=== PATIENT | male | born 1985 | race Caucasian/White ===

== ENCOUNTER 2018-05-30 12:18 | Emergency (ER) | payer MEDICARE, OTHER ==
[2018-05-30 12:34] VITALS: TEMP 98.1
--- NOTE | 2018-05-30 13:23 | ED ---
Psych HPI - General Chief Complaint: Psychiatric Symptoms Stated Complaint: Mental health Time Seen by Provider: 05/30/18 13:01 Source: patient, RN notes reviewed Mode of arrival: ambulatory - History of Present Illness Initial Comments: This is a 32-year-old male history depression and psychosis schizophrenia who is been using marijuana and alcohol heavily especially alcohol recently who is here today with complaints of suicidal thoughts and ideation. He was drinking rum today. Does not seem to have any particular plan. No fevers chills nausea vomiting sweats or other symptoms reported at this time. He is here with his mother. This current episode is been going on for about one month. It is getting progressively worse MD Complaint: suicidal ideation, feels depressed - Related Data Home Medications Medication Instructions Recorded Confirmed Dextroamphetamine/Amphetamine 60 mg PO DAILY 05/30/18 05/30/18 [Adderall] Ziprasidone [Geodon] 80 mg PO BID 05/30/18 05/30/18 diphenhydrAMINE [Benadryl] 100 mg PO HS 05/30/18 05/30/18 hydrOXYzine PAMOATE 100 mg PO TID PRN 05/30/18 05/30/18 Allergies Allergy/AdvReac Type Severity Reaction Status Date / Time propoxyphene Allergy Unknown Verified 05/30/18 13:31 [From [facility]-N 100] Review of Systems ROS Statement: Those systems with pertinent positive or pertinent negative responses have been documented in the HPI. ROS Other: All systems not noted in ROS Statement are negative. Past Medical History Past Medical History: No Reported History History of Any Multi-Drug Resistant Organisms: None Reported Past Surgical History: Orthopedic Surgery Past Psychological History: Bipolar, Depression Smoking Status: Current every day smoker Past Alcohol Use History: Abuse, Daily, Heavy Past Drug Use History: Marijuana General Exam - General Exam Comments Initial Comments: This a well-developed well-nourished awake alert oriented history male he does have the smell of alcohol conjoiners on his breath Limitations: no limitations General appearance: alert, in no apparent distress Head exam: Present: atraumatic, normocephalic, normal inspection Eye exam: Present: normal appearance, PERRL, EOMI. Absent: scleral icterus, conjunctival injection, periorbital swelling ENT exam: Present: normal exam, mucous membranes moist Neck exam: Present: normal inspection. Absent: tenderness, meningismus, lymphadenopathy Respiratory exam: Present: normal lung sounds bilaterally. Absent: respiratory distress, wheezes, rales, rhonchi, stridor Cardiovascular Exam: Present: regular rate, normal rhythm, normal heart sounds. Absent: systolic murmur, diastolic murmur, rubs, gallop, clicks GI/Abdominal exam: Present: soft, normal bowel sounds. Absent: distended, t enderness, guarding, rebound, rigid Extremities exam: Present: normal inspection, full ROM, normal capillary refill. Absent: tenderness, pedal edema, joint swelling, calf tenderness Back exam: Present: normal inspection Neurological exam: Present: alert, oriented X3, CN II-XII intact Psychiatric exam: Present: depressed, flat affect, suicidal ideation Skin exam: Present: warm, dry, intact, normal color. Absent: rash Course Vital Signs 05/30/18 05/30/18 12:31 20:05 Temperature 98.1 F Pulse Rate 103 H 88 Respiratory 18 14 Rate Blood Pressure 127/76 129/66 O2 Sat by Pulse 99 94 L Oximetry - Reevaluation(s) Reevaluation #1: 05/30/18 20:31 The patient was determined to be sober was evaluated by psychiatric service. Patient states that he really wanted to get off of substance abuse. He later denied that he was suicidal. Reevaluation #2: 05/30/18 20:32 The patient's care will be endorsed to Dr. Buenrostro at shift change at 2100 hrs. Medical Decision Making - Medical Decision Making The patient was reevaluated by psychiatry and found not to be a risk to himself or anyone else he will be discharged with his mother he will follow-up with rehab tomorrow with [facility]. - Lab Data Lab Results 05/30/18 Range/Units 13:27 Urine Opiates Screen Not Detected (NotDetected) Ur Oxycodone Screen Not Detected (NotDetected) Urine Methadone Screen Not Detected (NotDetected) Ur Propoxyphene Screen Not Detected (NotDetected) Ur Barbiturates Screen Not Detected (NotDetected) U Tricyclic Antidepress Not Detected (NotDetected) Ur Phencyclidine Scrn Not Detected (NotDetected) Ur Amphetamines Screen Detected H (NotDetected) U Methamphetamines Scrn Not Detected (NotDetected) U Benzodiazepines Scrn Detected H (NotDetected) Urine Cocaine Screen Not Detected (NotDetected) U Marijuana (THC) Screen Detected H (NotDetected) Disposition Clinical Impression: Depression, Attempted suicide, Alcohol intoxication Disposition: HOME SELF-CARE Condition: Good Instructions (If sedation given, give patient instructions): Depression (ED), Alcohol Intoxication (ED), Abuse of Alcohol (ED), Mood Disorders (ED) Is patient prescribed a controlled substance at d/c from ED?: No Referrals: Macario Olsen DO [Primary Care Provider] - 1-2 days
[2018-05-30 14:17] LABS: Amphetamine Screen,Urine Detected (NotDetected); Barbiturate Screen,Urine Not Detected (NotDetected); Benzodiazepines Screen,Urine Detected (NotDetected); Cocaine Screen,Urine Not Detected (NotDetected); Methadone Screen, Urine Not Detected (NotDetected); Opiate Screen,Urine Not Detected (NotDetected); Oxycodone Screen, Urine Not Detected (NotDetected); Phencyclidine Screen,Urine Not Detected (NotDetected); Tricyclic Antidepressant,Urine Not Detected (NotDetected); Urn Cannabinoid Scrn Detected (NotDetected)
[2018-05-30] MEDS ORDERED: LORazepam 1 MG TAB PO STA (15:21)
[2018-05-30] MEDS ORDERED: NICOTINE 21MG/24HR PATCH TRANSDERM STA (15:21)
[2018-05-30 20:06] VITALS: RESP 14
[2018-05-30 21:54] VITALS: BP 137/77; PULSE 77
== END 2018-05-30 21:54 | disposition home or self-care (01) ==
LOC: EC 12:18
DX: F31.9 Bipolar disorder, unspecified (principal); F10.129 Alcohol abuse with intoxication, unspecified; T14.91XA Suicide attempt, initial encounter; F20.9 Schizophrenia, unspecified; F17.200 Nicotine dependence, unspecified, uncomplicated; Z79.899 Other long term (current) drug therapy; Z88.5 Allergy status to narcotic agent
CPT/HCPCS: 80306; 99285; S4990

== ENCOUNTER 2019-03-12 14:51 | Inpatient (IN) | payer MEDICARE, MEDICAID ==
[2019-03-12] MEDS ORDERED: DIPH,PERTUS(ACELL)TETVAC-LF 0.5 ML VIAL IM ONE (15:00)
[2019-03-12] MEDS: TOPICAL SKIN ADHESIVE 1 EACH AMP TOPICAL ONE (15:09)
--- NOTE | 2019-03-12 15:10 | ED ---
General Adult HPI - General Chief complaint: Psychiatric Symptoms Stated complaint: Mental Health Time Seen by Provider: 03/12/19 14:54 Source: patient, EMS, RN notes reviewed Mode of arrival: EMS Limitations: no limitations - History of Present Illness Initial comments: Patient is a pleasant 33-year-old male presenting to the emergency Department with depression and suicidal thoughts. Patient admits to having auditory hallucinations. States is the voices sometimes tell him what to do. He states the voices do not tell him to harm himself nor anybody else however he had here that they were going to tell him to harm his cats or his mother and therefore he incised his wrists bilaterally with a clean kitchen knife. Patient does drink frequently, none today. Patient has not been eating or drinking well lately. No new physical complaints other than wrist injuries. Unclear last tetanus immunization. No street drugs. - Related Data Home Medications Medication Instructions Recorded Confirmed Dextroamphetamine/Amphetamine 60 mg PO DAILY 05/30/18 05/30/18 [Adderall] Ziprasidone [Geodon] 80 mg PO BID 05/30/18 05/30/18 diphenhydrAMINE [Benadryl] 100 mg PO HS 05/30/18 05/30/18 hydrOXYzine PAMOATE 100 mg PO TID PRN 05/30/18 05/30/18 Allergies Allergy/AdvReac Type Severity Reaction Status Date / Time propoxyphene Allergy Unknown Verified 05/30/18 13:31 [From Maritza-N 100] Review of Systems ROS Statement: Those systems with pertinent positive or pertinent negative responses have been documented in the HPI. ROS Other: All systems not noted in ROS Statement are negative. Constitutional: Denies: fever Eyes: Denies: eye pain ENT: Denies: ear pain Respiratory: Denies: cough Cardiovascular: Denies: chest pain Endocrine: Denies: fatigue Gastrointestinal: Denies: abdominal pain Genitourinary: Denies: dysuria Musculoskeletal: Denies: back pain Skin: Denies: rash Neurological: Denies: weakness Past Medical History Past Medical History: No Reported History History of Any Multi-Drug Resistant Organisms: None Reported Past Surgical History: Orthopedic Surgery Past Psychological History: Bipolar, Depression Smoking Status: Current every day smoker Past Alcohol Use History: Abuse, Daily, Heavy Past Drug Use History: Marijuana General Exam Limitations: no limitations General appearance: alert, in no apparent distress Head exam: Present: normocephalic Eye exam: Present: normal appearance ENT exam: Present: other (Dry lips) Neck exam: Present: normal inspection Respiratory exam: Present: normal lung sounds bilaterally Cardiovascular Exam: Present: regular rate, normal rhythm Expanded Peripheral pulses: 2+: Radial (R), Radial (L) GI/Abdominal exam: Present: soft. Absent: tenderness Extremities exam: Present: other (Bilateral wrist laceration) Neurological exam: Present: alert, other (Strength of wrist and fingers distally. Sensation intact. Cap refill less than 2 seconds.). Absent: motor sensory deficit Psychiatric exam: Present: normal affect, normal mood Skin exam: Present: other (By lateral wrist lacerations) Course Vital Signs 03/12/19 03/12/19 03/12/19 14:58 15:00 19:12 Temperature 98.2 F Pulse Rate 118 H 90 90 Respiratory 18 18 18 Rate Blood Pressure 139/85 130/78 130/78 O2 Sat by Pulse 98 98 98 Oximetry Procedures - Laceration Laceration #1 Consent Obtained: verbal consent Indication: laceration Site: upper extremity (wrist, right) Size (cm): 2 Description: linear Depth: simple, single layer Pre-repair: wound explored, irrigated extensively, deep structures intact Type of Sutures: other (with Dermabond) Patient Tolerated Procedure: well, no complications Laceration #2 Consent Obtained: verbal consent Indication: laceration Site: upper extremity (Wrist, left) Size (cm): 3 Description: linear Depth: simple, single layer Pre-repair: wound explored, irrigated extensively, deep structures intact Type of Sutures: other (Closed with Dermabond) Patient Tolerated Procedure: well, no complications Medical Decision Making - Medical Decision Making He should seen by mental health services, who will admit. - Lab Data Lab Results 03/12/19 Range/Units 15:43 Urine Opiates Screen Not Detected (NotDetected) Ur Oxycodone Screen Not Detected (NotDetected) Urine Methadone Screen Not Detected (NotDetected) Ur Propoxyphene Screen Not Detected (NotDetected) Ur Barbiturates Screen Not Detected (NotDetected) U Tricyclic Antidepress Detected H (NotDetected) Ur Phencyclidine Scrn Detected H (NotDetected) Ur Amphetamines Screen Detected H (NotDetected) U Methamphetamines Scrn Not Detected (NotDetected) U Benzodiazepines Scrn Not Detected (NotDetected) Urine Cocaine Screen Not Detected (NotDetected) U Marijuana (THC) Screen Not Detected (NotDetected) Disposition Clinical Impression: Depression, Suicidal ideation, Attempted suicide Disposition: TRANSFER TO PSYCH HOSP/UNIT Is patient prescribed a controlled substance at d/c from ED?: No Referrals: Macario Olsen DO [Primary Care Provider] - 1-2 days Decision Time: 20:51
[2019-03-12 16:02] LABS: Amphetamine Screen,Urine Detected (NotDetected); Barbiturate Screen,Urine Not Detected (NotDetected); Benzodiazepines Screen,Urine Not Detected (NotDetected); Cocaine Screen,Urine Not Detected (NotDetected); Methadone Screen, Urine Not Detected (NotDetected); Opiate Screen,Urine Not Detected (NotDetected); Oxycodone Screen, Urine Not Detected (NotDetected); Phencyclidine Screen,Urine Detected (NotDetected); Tricyclic Antidepressant,Urine Detected (NotDetected); Urn Cannabinoid Scrn Not Detected (NotDetected)
[2019-03-12] MEDS ORDERED: ACETAMINOPHEN TAB 325 MG TAB PO PRN (22:19)
[2019-03-12] MEDS ORDERED: MAG HYDROX/AL HYDROX/SIMETH 30 ML CUP PO PRN (22:19)
[2019-03-12] MEDS ORDERED: ZIPRASIDONE 20 MG VIAL IM PRN (22:19)
[2019-03-12] MEDS ORDERED: MAGNESIUM HYDROXIDE 2,400 MG/10 ML CUP PO PRN (22:19)
[2019-03-12] MEDS ORDERED: diphenhydrAMINE 50 MG CAP PO SCH (22:30)
[2019-03-12] MEDS: QUEtiapine 100 MG TAB PO SCH (23:04)
[2019-03-13] MEDS: hydrOXYzine PAMOATE 25 MG CAP PO PRN ×2 (06:35→15:14)
[2019-03-13] MEDS: QUEtiapine 100 MG TAB PO SCH ×2 (08:37→20:44)
[2019-03-13] MEDS: NICOTINE 14MG/24HR PATCH TRANSDERM SCH (08:37)
[2019-03-13 09:00] LABS: Basophils # (A) 0.1 k/uL (0-0.2); Basophils % (A) 1 %; Eosinophils # (A) 0.2 k/uL (0-0.7); Eosinophils % (A) 2 %; HCT 49.3 % (39.0-53.0); HGB 16.2 gm/dL (13.0-17.5); Lymphocytes # (A) 1.9 k/uL (1.0-4.8); Lymphocytes % (A) 18 %; MCH 32.1 pg (25.0-35.0); MCHC 32.9 g/dL (31.0-37.0); MCV 97.5 fL (80.0-100.0); Mean Platelet Volume 6.7; Monocytes # (A) 0.5 k/uL (0-1.0); Monocytes % (A) 5 %; Neutrophils # (A) 7.7 k/uL (1.3-7.7); Neutrophils % (A) 73 %; Platelet Count 393 k/uL (150-450); RBC 5.05 m/uL (4.30-5.90); RDW 13.2 % (11.5-15.5); WBC 10.4 k/uL (3.8-10.6)
[2019-03-13 09:25] LABS: ALT 17 U/L (4-49); AST 22 U/L (17-59); African American GFR (CKD) >90 (>60 ml/min/1.73 sqM); Albumin 4.1 g/dL (3.5-5.0); Alkaline Phosphatase 95 U/L (38-126); Anion Gap 9 mmol/L; Blood Urea Nitrogen 22 mg/dL (9-20); Calcium 9.5 mg/dL (8.4-10.2); Carbon Dioxide 27 mmol/L (22-30); Chloride 105 mmol/L (98-107); Cholesterol 183 mg/dL (<200); Glucose 88 mg/dL (74-99); HDL Cholesterol 35 mg/dL (40-60); LDL Cholesterol,Calculated 127 mg/dL (0-99); Non-African American GFR(CKD) >90 (>60 ml/min/1.73 sqM); Potassium 4.6 mmol/L (3.5-5.1); Sodium 141 mmol/L (137-145); Total Bilirubin 1.2 mg/dL (0.2-1.3); Total Protein 7.1 g/dL (6.3-8.2); Triglycerides 103 mg/dL (<150)
--- NOTE | 2019-03-13 11:37 | P.HP ---
Psychiatric H&P - . History & Physical: Allergies Allergy/AdvReac Type Severity Reaction Status Date / Time propoxyphene Allergy Intermediate Rash/Hives Verified 03/13/19 00:39 [From [facility] 100] Vital Signs Temp 98.8 F 03/13/19 06:31 Pulse 91 03/13/19 06:31 Resp 18 03/13/19 06:31 BP 117/75 03/13/19 06:31 Pulse Ox 96 03/12/19 21:00 Intake & Output 03/12/19 03/13/19 03/13/19 18:59 06:59 18:59 Weight 149.685 kg 145.603 kg Laboratory Last Values WBC 10.4 k/uL (3.8-10.6) 03/13/19 08:13 RBC 5.05 m/uL (4.30-5.90) 03/13/19 08:13 Hgb 16.2 gm/dL (13.0-17.5) 03/13/19 08:13 Hct 49.3 % (39.0-53.0) 03/13/19 08:13 MCV 97.5 fL (80.0-100.0) 03/13/19 08:13 MCH 32.1 pg (25.0-35.0) 03/13/19 08:13 MCHC 32.9 g/dL (31.0-37.0) 03/13/19 08:13 RDW 13.2 % (11.5-15.5) 03/13/19 08:13 Plt Count 393 k/uL (150-450) 03/13/19 08:13 Neutrophils % 73 % 03/13/19 08:13 Lymphocytes % 18 % 03/13/19 08:13 Monocytes % 5 % 03/13/19 08:13 Eosinophils % 2 % 03/13/19 08:13 Basophils % 1 % 03/13/19 08:13 Neutrophils # 7.7 k/uL (1.3-7.7) 03/13/19 08:13 Lymphocytes # 1.9 k/uL (1.0-4.8) 03/13/19 08:13 Monocytes # 0.5 k/uL (0-1.0) 03/13/19 08:13 Eosinophils # 0.2 k/uL (0-0.7) 03/13/19 08:13 Basophils # 0.1 k/uL (0-0.2) 03/13/19 08:13 Sodium 141 mmol/L (137-145) 03/13/19 08:13 Potassium 4.6 mmol/L (3.5-5.1) 03/13/19 08:13 Chloride 105 mmol/L (98-107) 03/13/19 08:13 Carbon Dioxide 27 mmol/L (22-30) 03/13/19 08:13 Anion Gap 9 mmol/L 03/13/19 08:13 BUN 22 mg/dL (9-20) H 03/13/19 08:13 Creatinine 0.97 mg/dL (0.66-1.25) 03/13/19 08:13 Est GFR (CKD-EPI)AfAm >90 (>60 ml/min/1.73 sqM) 03/13/19 08:13 Est GFR (CKD-EPI)NonAf >90 (>60 ml/min/1.73 sqM) 03/13/19 08:13 Glucose 88 mg/dL (74-99) 03/13/19 08:13 Calcium 9.5 mg/dL (8.4-10.2) 03/13/19 08:13 Total Bilirubin 1.2 mg/dL (0.2-1.3) 03/13/19 08:13 AST 22 U/L (17-59) 03/13/19 08:13 ALT 17 U/L (4-49) 03/13/19 08:13 Alkaline Phosphatase 95 U/L (38-126) 03/13/19 08:13 Total Protein 7.1 g/dL (6.3-8.2) 03/13/19 08:13 Albumin 4.1 g/dL (3.5-5.0) 03/13/19 08:13 Triglycerides 103 mg/dL (<150) 03/13/19 08:13 Cholesterol 183 mg/dL (<200) 03/13/19 08:13 LDL Cholesterol, Calc 127 mg/dL (0-99) H 03/13/19 08:13 HDL Cholesterol 35 mg/dL (40-60) L 03/13/19 08:13 TSH 2.410 mIU/L (0.465-4.680) 03/13/19 08:13 Urine Opiates Screen Not Detected (NotDetected) 03/12/19 15:43 Ur Oxycodone Screen Not Detected (NotDetected) 03/12/19 15:43 Urine Methadone Screen Not Detected (NotDetected) 03/12/19 15:43 Ur Propoxyphene Screen Not Detected (NotDetected) 03/12/19 15:43 Ur Barbiturates Screen Not Detected (NotDetected) 03/12/19 15:43 U Tricyclic Antidepress Detected (NotDetected) H 03/12/19 15:43 Ur Phencyclidine Scrn Detected (NotDetected) H 03/12/19 15:43 Ur Amphetamines Screen Detected (NotDetected) H 03/12/19 15:43 U Methamphetamines Scrn Not Detected (NotDetected) 03/12/19 15:43 U Benzodiazepines Scrn Not Detected (NotDetected) 03/12/19 15:43 Urine Cocaine Screen Not Detected (NotDetected) 03/12/19 15:43 U Marijuana (THC) Screen Not Detected (NotDetected) 03/12/19 15:43 03/13/19 11:22 IDENTIFYING DATA: This patient is a 33-year-old single male who was admitted to the mental health unit through the emergency room for acute suicidal ideation with suicide attempt. HPI: Patient presented to the hospital after he lacerated his wrists with a kitchen knife. He indicated that his "mental illness was getting worse and more worse". He states he felt hopeless and overwhelmed. He was experiencing paranoid thoughts. Ultimately he decided to kill himself because he was experiencing auditory hallucinations that were informing him that he would have to kill his pet and mother at some time. He decided he would kill himself before he was put in the position to act violently towards others. He indicates that he has not slept in 4 days. Appetite has been poor. He has been excessively drinking alcohol and excessively using Adderall. He states that each month he starts using his Adderall as prescribed but as each month progresses he begins increasing the dose of the medication in an abusive fashion. He states his alcohol use is approximately a fifth a day since this past summer. He reports no alcohol use in the last 5 days. He states he's been complying with his psychotropic medications prescribed by his primary care physician. He reports no thoughts of harming others. He reports no visual hallucinations. No history of hypomanic or manic episodes that he recalls. He is feeling anxious here on the mental health unit. He is reporting no panic at tacks. PAST PSYCHIATRIC HISTORY: This is the patient's fourth inpatient psychiatric admission he states he was on this unit in 2013. He has 1 prior suicide attempt several years ago where he hit his head on a wall. His primary care physician is treating him with Vistaril 100 mg 3 times daily as needed, Adderall 40 mg twice daily, Seroquel 300 mg twice daily, Geodon 80 mg twice daily, Benadryl 150 mg at bedtime. The patient states that he's been on no other psychotropics in the past. His first psychiatric hospitalization was approximately 8 years ago. PMH: None reported ALLERGIES: Propoxyphene MEDICATIONS: The patient's states he has been complying with his psychotropic medications CHEMICAL DEPENDENCY HISTORY: Alcohol use as noted above approximate one fifth per day since summer he reports no alcohol use in the last 5 days, history of using marijuana chronically but he discontinued 3-4 months ago, history of using K2/spice for 2 weeks in the remote past, ongoing abuse of Adderall. He has never been placed in residential treatment for chemical dependency reasons. FAMILY PSYCHIATRIC HISTORY: None reported, no suicides in the family FAMILY CHEMICAL DEPENDENCY HISTORY: None reported SOCIAL HISTORY: The patient is 33 years old he is single he has no children he resides with his mother. He is unemployed he states he receives a disability income for bipolar schizophrenia. He graduated high school and attended [employer] but did not earn an associates degree. No history of service. He has 2 brothers. He resides in the [place] [place]. He reports no legal history, he reports no abuse history. MENTAL STATUS EXAM: The patient is a tall overweight male appearing his stated age. He is dressed in his own clothing. He has a disheveled ap pearance hygiene is fair. His lower lip is very dry cracked and peeling. He speaks it appears he has dryness of his mouth. Eye contact is intermittent. He is obviously distracted throughout the session. On 3 occasions he asked me to repeat my previous question due to being internally distracted. He reports hopelessness thinking depression he presented with suicidal ideation. He states that he feels safe in the hospital but he feels anxious in this environment due to social anxiety. He reports no thoughts of wanting to harm others. He reports no homicidal ideation intent or plan. He reports ongoing auditory hallucinations. He states at this time they are providing a commentary "about my thoughts". He states currently they are not directing self-harm or harm to others. They are derogatory at times. He reports no visual hallucinations. He does endorse ideas of reference in that at times he will receive specific messages for him from TV or radio. He does have some paranoid thinking. He demonstrates no verbal or physical aggressiveness. He does seem to have some repetitive movement of his jaw throughout the session. He frequently picks at his hands and shakes his legs during the session. He is oriented to person place and date he is able to name the days of week backwards. His affect is blunted throughout the conversation. STRENGTHS/WEAKNESSES: Strengths: Housing, income, support from mother weaknesses: Abuse of Adderall alcohol no outpatient mental health services INTELLECTUAL FUNCTIONING: Average IMPRESSIONS: [] 1. Psychosis unspecified, rule out schizophrenia versus schizoaffective disorder, rule out psychosis secondary to stimulant and alcohol use, anxiety unspecified, stimulant use disorder, alcohol use disorder PLAN: The patient has been admitted to the mental health unit voluntarily. We reviewed his presenting symptoms and treatment options. He is on Benadryl and Vistaril both are fairly anti-cholinergic. It appears he is experiencing some side effects related to that combination. He is on 2 antipsychotics which we try to avoid unless necessary. We will hold the Geodon at this time continue the Seroquel. There is obviously a concern that the overuse of Adderall is worsening or precipitating the psychosis. We will give him more time to clear before changing the antipsychotics any further. Trazodone will be used for sleep. He will be seen by internal medicine for routine history and physical exam. He is encouraged to fully participate in the milieu. We will involve his mother in treatment and discharge planning as he will allow. Social work will meet with the patient to complete a psychosocial assessment and to begin discharge planning. We discussed the possibility of having him attend inpatient chemical dependency treatment and he will give this consideration.
[2019-03-13 18:37] LABS: Hemoglobin A1C 4.8 % (4.0-6.0)
[2019-03-13] MEDS: traZODone HCL 50 MG TAB PO SCH (20:44)
--- NOTE | 2019-03-13 22:56 | P.MDCNMH ---
History of Present Illness H&P Date: 03/13/19 Chief Complaint: medical evaluation 33 year old male with no significant past medical history patient was brought in due to suicidal ideation, he reports hearing voices, and was feeling homicidal toward his family and pet. but decided to kill himself instead thats why he slit his wrist. which he did bilaterally . he reports trouble over the past few weeks , where he takes more than he supposed to take of adderal along with heavy alcohol consumptions. he reports no sleep over the past few days. he currently denies any medical complaints like fever, chills, chest pain , trouble breathing, coughing , abd pain , nausea or vomiting. Review of Systems Pertinent positives as noted in HPI. All other systems were reviewed and are negative Past Medical History Past Medical History: No Reported History History of Any Multi-Drug Resistant Organisms: None Reported Past Surgical History: Orthopedic Surgery Smoking Status: Current every day smoker Medications and Allergies Home Medications Medication Instructions Recorded Confirmed Type Ziprasidone [Geodon] 80 mg PO BID 05/30/18 03/13/19 History diphenhydrAMINE [Benadryl] 150 mg PO HS 05/30/18 03/13/19 History hydrOXYzine PAMOATE 100 mg PO TID PRN 05/30/18 03/12/19 History Dextroamphetamine/Amphetamine 40 mg PO BID 03/12/19 03/13/19 History [Adderall] QUEtiapine FUMARATE [SEROquel] 300 mg PO BID 03/12/19 03/13/19 History Allergies Allergy/AdvReac Type Severity Reaction Status Date / Time propoxyphene Allergy Intermediate Rash/Hives Verified 03/13/19 00:39 [From Darcet-N 100] Physical Exam Vitals: Vital Signs Temp Pulse Pulse Resp BP BP Pulse Ox 03/13/19 18:26 129 H 16 130/79 96 03/13/19 06:31 98.8 F 91 18 117/75 03/13/19 00:02 97.8 F 95 16 135/86 03/12/19 21:00 98.2 F 99 21 136/75 96 Intake and Output 03/13/19 03/13/19 03/13/19 06:59 14:59 22:59 Other: Weight 145.603 kg Constitutional: No acute distress, conversant, pleasant Eyes: Anicteric sclerae, moist conjunctiva, no lid-lag Pupils equal round reactive to light ENMT: NC/AT Oropharynx clear, no erythema, exudates Neck: Supple, FROM, no masses, or JVD No carotid bruits No thyromegaly Lungs: Clear to auscultation Clear to percussion Normal respiratory effort, no accessory muscle use Cardiovascular: Heart regular in rate and rhythm, No murmurs, gallops, or rubs No peripheral edema Abdominal: Soft Nontender, no guarding, rebound or rigidity Abdomen moving with respiration Normoactive bowel sounds No hepatomegaly, No splenomegaly No palpable mass No abdominal wall hernia noted Skin: bilateral wrist cuts cutaneuous , no bleeding , no dishcarge, no induarion or erythtema . left wrist cut has some open edges otherwise Normal temperature, tone, texture, turgor No induration No subcutaneous nodules No rash, lesions No ulcers Extremities: No digital cyanosis No clubbing Pedal pulses intact and symmetrical Radial pulses intact and symmetrical No calf tenderness Psychiatric: Alert and oriented to person, place and time depressed affect poor judgement Neuro Muscles Strength 5/5 in all 4 extremities Sensation to light touch grossly present throughout Cranial nerves II-XII grossly intact No focal sensory deficits Lymphatics: no palpable cervical or supraclavicular , or inguinal lymph nodes Cranial Nerve Examination - Cranial Nerves Cranial Nerve II- Optic: Intact Cranial Nerve III- Oculomotor: Intact Cranial Nerve IV- Trochlear: Intact Cranial Nerve V- Trigeminal: Intact Cranial Nerve - Abducens: Intact Cranial Nerve VII- Facial: Intact Cranial Nerve VIII- Auditory: Intact Cranial Nerve IX- Glossopharyngeal: Intact Cranial Nerve X- Vagus: Intact Cranial Nerve XI- Accessory: Intact Cranial Nerve XII- Hypoglossal: Intact Results CBC & Chem 7: 03/13/19 08:13 03/13/19 08:13 Labs: Abnormal Lab Results - Last 24 Hours (Table) 03/13/19 Range/Units 08:13 BUN 22 H (9-20) mg/dL LDL Cholesterol, Calc 127 H (0-99) mg/dL HDL Cholesterol 35 L (40-60) mg/dL Assessment and Plan Assessment: 33 year old male with no significant past medical history , brought in due to suicidal ideation and attempt, currently denies any medical complaints or concerns. Plan: suicide ideation and attempt wrist cutting bilateral acute psychosis, auditory hallucination , possible acute schizophrenia local wound care apply steri strips to left wrist cut check EKG, patient on multiple antipsychotics, to establish baseline EKG further management per psych low risk for DVT patient is ambulatory Thank you for allowing us to participate in the care of this patient. We will follow peripherally. Do not hesitate to contact us with questions. Someone can be reached from the [facility] hospitalist group at all hours of the day at [phone].
[2019-03-14] MEDS: NICOTINE 14MG/24HR PATCH TRANSDERM SCH (09:14)
[2019-03-14] MEDS: QUEtiapine 100 MG TAB PO SCH ×2 (09:14→21:40)
--- NOTE | 2019-03-14 09:51 | P.PN ---
Progress Note - Text Interval history: The patient is found in group he follows me to an interview room. He indicates he still does not feel well. He reports that he was quite scared about being here yesterday. He is a little less fearful about being in the hospital today. He reports that he stayed in bed most of the day yesterday trying to catch up on sleep as he had been sleeping no prior for several days. When asked about his hallucinations he states "I don't like to talk about the voices". He does state that they have not improved from yesterday. We discussed a plan of changing his antipsychotic medication and he was agreeable. He states he was able to speak to his father over the phone and his father will be visiting over the weekend. He reports his appetite is stable. Mental status exam: The patient is a tall obese male he is dressed in his own clothing wearing sweatpants and a T-shirt his T-shirt has a hole in it he is wearing his eyeglasses. Eye contact is fairly poor. He often looks down throughout the interview. He appears preoccupied and distracted. Again throughout the session he asked me to repeat myself as he seems preoccupied. I assume he is attending to auditory hallucinations. He indicates that continues to experience auditory hallucinations but will not describe the content today. He endorses no visual hallucinations. He reports feeling fearful. He demonstrates no verbal or physical aggressiveness. He does continue to demonstrate some intermittent jaw movement he is frequently moving his hands. He is oriented to person place and date. Affect is blunted throughout the session. Plan: The patient will continue on the Seroquel as written. We decided we would initiate another antipsychotic with a plan of cross tapering off of the Seroquel. We reviewed the several options in terms of selecting an antipsychotic. We decided to pick one with a lower risk of weight gain given his current weight. We chose Abilify and we will start at 15 mg daily. We reviewed the potential side effects and benefits of Abilify and his questions were answered. He has no questions regarding the medication. We will monitor him for safety is encouraged to participate in all groups. Vital signs reviewed. He is demonstrating no signs of withdrawal in reviewing the CIWA scores. He requires continued psychiatric hospitalization due to his acute psychosis.
[2019-03-14] MEDS: ARIPiprazole 15 MG TAB PO SCH (09:58)
[2019-03-14] MEDS: traZODone HCL 50 MG TAB PO SCH (21:40)
[2019-03-14] MEDS: hydrOXYzine PAMOATE 25 MG CAP PO PRN (22:16)
[2019-03-15] MEDS: NICOTINE 14MG/24HR PATCH TRANSDERM SCH (09:26)
[2019-03-15] MEDS: QUEtiapine 100 MG TAB PO SCH ×2 (09:26→21:39)
[2019-03-15] MEDS: ARIPiprazole 15 MG TAB PO SCH (09:26)
--- NOTE | 2019-03-15 20:51 | P.PN ---
Progress Note - Text Progress Note Date: 03/15/19 Interval history: Patient seen in [facility] today. He reports that he's been trying to catch up on some sleep today. He hasn't slept really that much over the last several days. He does describe that he is feeling better overall compared to when he came in. He does not seem to verbalize any medication side effects other than perhaps some lightheadedness. Mental status exam: He is alert and cooperative with the interview. His speech is fluent, not rapid or pressured. Thought processes organized. His mood he describes is kind of overwhelmed. he admits to some on and off fleeting thoughts of suicide. She does not verbalize any thoughts of harm to others. He does not display any agitation. Plan: Patient will be maintained on current psychotropic medication regimen. Continue to monitor for any medication side effects and monitor his ongoing response to treatment. We will continue to monitor regarding any suicidal ideations.
[2019-03-15] MEDS: traZODone HCL 50 MG TAB PO SCH (21:39)
[2019-03-16] MEDS: NICOTINE 14MG/24HR PATCH TRANSDERM SCH (10:19)
[2019-03-16] MEDS: ARIPiprazole 15 MG TAB PO SCH (10:20)
[2019-03-16] MEDS: QUEtiapine 100 MG TAB PO SCH ×2 (10:20→21:44)
--- NOTE | 2019-03-16 16:02 | P.PN ---
Progress Note - Text Progress Note Date: 03/16/19 Interval history: Patient is seen in cross coverage today. He reports that he did eat well for lunch. He had visiting last night and is expecting his brothers to come for visiting [facility]. He does describe feeling somewhat stressed and describes that he does have some anxiety without groups of people. He is encouraged regarding going to groups. He does not seem to verbalize any specific adverse psychotropic medication side effects today. Mental status exam: He is alert and cooperative with the interview. His speech is fluent, not rapid or pressured. Thought processes organized. His mood he describes his feeling stressed. He denies any thoughts of harm to self or others. He does report some hallucinations of commenting on what he is doing but it is less frequent and less intense now. Plan: Patient will be maintained on current psychotropic medication regimen. Continue to monitor for any medication side effects monitor his ongoing response to treatment. He is encouraged regarding attending groups.
[2019-03-16] MEDS: traZODone HCL 50 MG TAB PO SCH (21:44)
[2019-03-17] MEDS: NICOTINE 14MG/24HR PATCH TRANSDERM SCH (09:03)
[2019-03-17] MEDS: QUEtiapine 100 MG TAB PO SCH ×2 (09:03→20:50)
[2019-03-17] MEDS: ARIPiprazole 15 MG TAB PO SCH (09:03)
--- NOTE | 2019-03-17 09:32 | P.PN ---
Progress Note - Text Interval history: The patient is found in his room he follows me to an interview room. He indicates his mood is okay. He reports that he only attended 1 group yesterday. He describes having difficulty sleeping staff recorded he slept 7 hours. Appetite is been stable. He did have several family members visit over the weekend. He states that the voices have improved from when he came in. He states there not as loud. They do however continue to be derogatory. They direct him not to talk about them to other people. He states overall they are "negative". He continues to be uncomfortable talking about the auditory hallucinations. He again is focused on discharge. He states the voices tell him that he will never get out of this hospital. Mental status exam: The patient is a tall overweight male he is dressed in his own clothing hygiene grooming fair. Eye contact is poor. He often looks down at the ground. He frequently slowly moves his upper and lower extremities. He reports no thoughts of wanting to harm himself or others but he does appear to be influenced by his auditory hallucinations still. The auditory hallucinations are still troubling and cause dysfunction. He demonstrates no verbal or physical aggressiveness. Insight and judgment limited. He remains oriented to person place and date. Affect remains blunted. He continues to describe feelings of anxiety being around other people at times. Plan: The patient will continue on the Abilify we will titrate to 20 mg daily. Continue Seroquel as written. I will increase the trazodone 100 mg at bedtime. We will monitor him for safety and encourage full participation in the milieu. Social work will contact his family to see how the visit over the weekend went. It appears he still experiencing significant symptoms of psychosis causing dysfunction. His symptoms of psychosis continue to affect his daily decision making. Vital signs reviewed. No evidence of alcohol withdrawal.
[2019-03-17] MEDS: traZODone HCL 100 MG TAB PO SCH (20:50)
[2019-03-18] MEDS: NICOTINE 14MG/24HR PATCH TRANSDERM SCH (09:29)
[2019-03-18] MEDS: QUEtiapine 100 MG TAB PO SCH ×2 (09:29→20:51)
--- NOTE | 2019-03-18 10:50 | P.PN ---
Progress Note - Text Interval history: The patient is found in the hallway he follows me to an interview room. He indicates his mood is anxious. He continues to experience auditory hallucinations that are preoccupying his mind throughout the day. Staff report that he appears preoccupied in group and he attends very few groups. Reportedly he is often found in his room looking out the window. Social work has been in contact with the patient's mother. He has no questions regarding psychotropic medication we discussed titrating the Abilify further. H e indicates he did not sleep last night staff report he slept 6 hours. He admits that he has been napping during the day and he is discouraged from that activity. He is encouraged to attend more groups or at least walk in the hallways more to get exercise. Mental status exam: The patient's a tall overweight male he seated in the chair calmly eye contact is poor he looks down at the floor throughout the session. He reports an anxious mood. He reports no suicidal or homicidal thoughts. He reports that there has been no improvement in the auditory hallucinations since yesterday. They seem to preoccupy his mind as they are very distracting. He continues to be uncomfortable discussing with the voices are saying. He continues to have some paranoid thinking and feeling unsafe at times. Insight and judgment remain impaired. He demonstrates no verbal or physical aggressiveness. He maintains a blunted to flat affect throughout the session. Plan: We will titrate the Abilify to 30 mg daily in an effort to maximize the antipsychotic effect of the medication. Continue Seroquel as written. We will monitor him for safety and encourage participation in the milieu. He continues to be acutely psychotic which is causing psychosocial dysfunction and he requires continued psychiatric hospitalization. Vital signs reviewed. No evidence of alcohol withdrawal symptoms.
[2019-03-18] MEDS: traZODone HCL 100 MG TAB PO SCH (20:51)
[2019-03-19] MEDS: QUEtiapine 100 MG TAB PO SCH ×2 (09:47→20:44)
[2019-03-19] MEDS: NICOTINE 14MG/24HR PATCH TRANSDERM SCH (09:47)
--- NOTE | 2019-03-19 13:22 | P.PN ---
Subjective Progress Note Date: 03/19/19 The patient was seen in the chart was reviewed. The case was discussed with the staff and team meeting. The patient reports doing okay but reports some improvement in auditory hallucinations. The patient continues to report paranoia and anxiety. The patient reports improved sleep last night and compla ined of poor appetite. The patient remained withdrawn and isolative on the unit. He reports he feels afraid of people and it's overwhelming for him to go to the groups.. The patient reports auditory hallucinations but denies any suicidal or homicidal ideations at this time. The patient has been cooperative and compliant with the treatment and denies any side effects on the medications at this time. Objective - Vital Signs Vital signs: Vital Signs Temp 97.8 F 03/19/19 06:57 Pulse 96 03/19/19 06:57 Resp 18 03/19/19 06:57 BP 107/63 03/19/19 06:57 Pulse Ox 97 03/18/19 06:40 - Exam Mental status exam: He is alert and cooperative with the interview. His speech is fluent, not rapid or pressured. Thought processes organized. His mood he describes is kind of overwhelmed. he admits to some on and off fleeting thoughts of suicide. She does not verbalize any thoughts of harm to others. He does not display any agitation. - Labs CBC & Chem 7: 03/13/19 08:13 03/13/19 08:13 Assessment and Plan Assessment: Psychosis unspecified, rule out schizophrenia versus schizoaffective disorder, rule out psychosis secondary to stimulant and alcohol use, anxiety unspecified, stimulant use disorder, alcohol use disorder Plan: Plan: Patient will be maintained on current psychotropic medication regimen. Continue to monitor for any medication side effects monitor his ongoing response to treatment. He is encouraged regarding attending groups.
[2019-03-19] MEDS: traZODone HCL 100 MG TAB PO SCH (20:44)
[2019-03-20] MEDS: NICOTINE 14MG/24HR PATCH TRANSDERM SCH (09:39)
[2019-03-20] MEDS: QUEtiapine 100 MG TAB PO SCH ×2 (10:03→21:05)
[2019-03-20] MEDS ORDERED: ARIPiprazole 15 MG TAB PO STA (10:30)
--- NOTE | 2019-03-20 11:36 | P.PN ---
Progress Note - Text Interval history: The patient is found in the hallway he follows me to an interview room. He indicates things are starting to improve. He states that he is experiencing more positive voices and not just the negative ones. He indicates that he was able to sleep better last night which was helpful. He states that he has begun reading a book and has been successful with that as in the past he struggled with maintaining focus. He states ordinarily she would have to take Adderall to read a book. Appetite stable. He has no questions or concerns regarding medication. We discussed titrating the Abilify to 30 mg today and reducing the Seroquel he is agreeable. Mental status exam: The patient is a tall obese male he is dressed in his own clothing he has no eye contact throughout the session and is looks down at the floor. He indicates his mood is better affect is constricted to blunted throughout the session. He is reporting continued auditory hallucinations but states there are some positive ones now. It appears that he still has some voices that are derogatory. He denies having any command auditory halluci nations currently. The patient may be minimizing his reports as he continues to verbalize a desire to be discharged. He demonstrates no verbal or physical aggressiveness he is easily directable. He demonstrates no involuntary repetitive movements. Insight and judgment slowly improving. Plan: The patient will continue on Abilify the dosage will be increased to 30 mg today Seroquel be reduced to 300 mg at bedtime. We will monitor him for safety he is encouraged to participate fully in the milieu. He requires continued psychiatric hospitalization due to his acute psychosis.
[2019-03-20] MEDS: hydrOXYzine PAMOATE 25 MG CAP PO PRN (14:43)
[2019-03-20 15:16] VITALS: BMI 41.2
[2019-03-20] MEDS: traZODone HCL 100 MG TAB PO SCH (21:05)
[2019-03-21] MEDS: NICOTINE 7MG/24HR PATCH TRANSDERM SCH (08:25)
[2019-03-21] MEDS: ARIPiprazole 15 MG TAB PO SCH (08:25)
--- NOTE | 2019-03-21 11:46 | P.PN ---
Progress Note - Text Interval history: The patient is found in his room he follows me to an interview room. He states that he feels the medication changes are helping. He states compared to when he came in the voices are quieter. When he interacts with others he finds that it's easier to distract from the voices. They still remain derogatory making negative comments but he states they are not commanding. They are making some positive statements at times. We discussed both of his antipsychotic medications we discussed the plan of eventually tapering down and possibly off of Seroquel. He has been attempting some group participation. Appetite stable. He is sleeping at night with use of trazodone. Mental status exam: The patient is a tall obese male appearing his stated age. Hygiene grooming adequate. Eye contact remains impaired he is often looking down he did make eye contact briefly a few times during the session. Speech is fluent a little more spontaneous. He was asking questions about his medication which was more interactive than previous sessions. He reports auditory hallucinations as noted above no visual hallucinations. He is endorsing no specific delusions. Insight and judgment are improving. He remains oriented to person place and date. He is demonstrating no verbal or physical aggressiveness. Affect was more constricted versus blunted. Plan: The patient will continue on his current psychotropic medications. We will monitor him for safety vital signs reviewed. He anticipates his parents will visit over the weekend we will look for input from them after that visit. He appears to be slowly stabilizing. He requires continued psychiatric hospitalization still.
[2019-03-21] MEDS: QUEtiapine 100 MG TAB PO SCH (21:58)
[2019-03-21] MEDS: traZODone HCL 100 MG TAB PO SCH (21:58)
--- NOTE | 2019-03-22 08:06 | P.PN ---
Progress Note - Text Interval history: The patient is found in his room he follows me to an interview room. He indicates that he had the same phenomenon yesterday where he had racing thoughts (in the late morning that persisted throughout the day. He states those thoughts made him feel like his symptoms were not going to get better. He subsequently avoided groups again. We discussed that we could restart the morning dose of Seroquel as he feels that he needs that medication to prevent racing thoughts during the day. Voices seemed to be the same as described yesterday. He states that he is trying a trick of thinking of a song and focusing on that which seems to quiet the voices. He is reporting no command auditory hallucinations. He is looking forward to a visit from his father and brother this evening. Sleep is adequate staff reported he slept 8 hours. Appetite stable. Mental status exam: The patient is a tall morbidly obese male he is dressed in the same clothing hygiene grooming fair. Eye contact poor today he speaks quietly he demonstrates no pressured speech he demonstrates no tangential thinking loose associations or flight of ideas. He endorses ongoing auditory hallucinations that are derogatory at times but noncommanding at this time. He reports no visual hallucinations. He describes no paranoid thoughts. He indicates he feels safe in the hospital. He still has feelings of discomfort around some people and that does contribute to him avoiding groups. He demonstrates no verbal or physical aggressiveness. He remains oriented to person place and date. He is demonstrating no repetitive involuntary movements during our interaction. Plan: The patient will continue on the Abilify is written we will restart a morning dose of Seroquel using 100 mg continue the 300 mg bedtime dose of Seroquel. We are hoping to cross taper off of the Seroquel but he does not seem clinically possible. Again he has indicated that the voices have improved during the hospitalization. We're hoping that they will attenuate further. We will await for input from family regarding his current status compared to known baseline. Vital signs reviewed. He is encouraged to participate in the milieu.
[2019-03-22] MEDS: NICOTINE 7MG/24HR PATCH TRANSDERM SCH (08:16)
[2019-03-22] MEDS: ARIPiprazole 15 MG TAB PO SCH (08:16)
[2019-03-22] MEDS: QUEtiapine 100 MG TAB PO SCH ×2 (08:17→21:32)
[2019-03-22] MEDS: traZODone HCL 100 MG TAB PO SCH (21:32)
[2019-03-23] MEDS: NICOTINE 7MG/24HR PATCH TRANSDERM SCH (09:08)
[2019-03-23] MEDS: ARIPiprazole 15 MG TAB PO SCH (09:09)
[2019-03-23] MEDS: QUEtiapine 100 MG TAB PO SCH ×2 (09:09→21:53)
--- NOTE | 2019-03-23 12:12 | P.PN ---
Progress Note - Text Interval history: The patient is found in the hallway he follows me to an interview room. He reports that his mood seems to be a little better. Adding the lower dose of Seroquel back in the morning did seem to provide benefit. Sleep is stable appetite stable. He is selectively attending groups. He had a visit from his family last evening and expects his mother and brother to visit again this evening. Mental status exam: The patient is a tall obese male appearing his stated age. He is dressed in the same clothing eye contact is mostly impaired he often looks down at the floor he will briefly make eye contact 1-2 times during the session. He is reporting ongoing hallucinations but he states he's doing better with distracting himself from them. He reports no visual hallucinations. He reports no specific delusions. He demonstrates no tangential thinking loose associations or flight of ideas. He demonstrates no verbal or physical aggressiveness he is demonstrating no repetitive involuntary movements today. Insight and judgment slowly improving. Affect is constricted. Plan: The patient will continue on his current psychotropic medications. We'll monitor him for safety and encourage participation in the milieu. He anticipates his family will visit again this evening. He resides with his mother. We will contact his mother after jodi's visit to discuss his progress. Vital signs reviewed.
[2019-03-23] MEDS: traZODone HCL 100 MG TAB PO SCH (21:53)
[2019-03-24] MEDS: QUEtiapine 100 MG TAB PO SCH ×2 (09:42→21:08)
[2019-03-24] MEDS: NICOTINE 7MG/24HR PATCH TRANSDERM SCH (09:42)
[2019-03-24] MEDS: ARIPiprazole 15 MG TAB PO SCH (09:42)
--- NOTE | 2019-03-24 10:50 | P.PN ---
Progress Note - Text Interval history: The patient is found in his room he follows me to an interview room. He states that his mood continues to improve. He feels that the voices are quieter today. He states that as long as he doesn't get complacent and keeps his mind active the voices are quite manageable. He has no questions or concerns regarding medications. He has not been using the Vistaril so we will discontinue that from his medication list. He slept 6 hours or more last evening appetite is stable. He is making effort to attend some groups. There is a family meeting scheduled today involving his mother. He discussed the purpose of that meeting and how it will contribute to our discharge planning. Mental status exam: The patient is tall obese male eye is impaired but improving speech is fluent spontaneous nonpressured. He reports his mood is improving. He is reporting no suicidal ideation intent or plan he reports no homicidal ideation intent or plan. He continues to have auditory hallucinations he states they're noncommanding they are less derogatory. He finds that he is more able to distract himself from the voices. He is reporting no visual hallucinations or any specific delusions. He demonstrates no verbal or physical aggressiveness he demonstrates no involuntary repetitive movements. Insight and judgment improving. His affect is slowly becoming brighter each day. He remains oriented to person place and date. Plan: The patient will continue on his current psychotropic medications. We will discontinue the Vistaril from the medication list as it is not needed. We will await the outcome of the family meeting. I anticipate he will be appropriate for discharge sometime this week. Vital signs reviewed.
[2019-03-24] MEDS: traZODone HCL 100 MG TAB PO SCH (21:08)
[2019-03-25 06:38] VITALS: BP 99/54; PULSE 75; RESP 14; TEMP 97.9
[2019-03-25] MEDS: NICOTINE 7MG/24HR PATCH TRANSDERM SCH (09:12)
[2019-03-25] MEDS: ARIPiprazole 15 MG TAB PO SCH (09:12)
[2019-03-25] MEDS: QUEtiapine 100 MG TAB PO SCH (09:12)
--- NOTE | 2019-03-25 09:36 | P.DS ---
Providers Date of admission: 03/12/19 22:14 Expected date of discharge: 03/25/19 Attending physician: Gregory Tejeda Consults: 03/12/19 22:19 Consult Physician Routine Consulting Provider: Henry Lynch Consult Reason/Comments: H & P and medical care Do you want consulting provider notified?: Yes Primary care physician: Macario Olsen - Discharge Diagnosis(es) (1) Schizophrenia Current Visit: Yes Status: Acute Priority: High (2) Stimulant use disorder Current Visit: Yes Status: Acute Priority: Medium (3) Alcohol use disorder, moderate, dependence Current Visit: Yes Status: Acute Priority: Medium Hospital Course: Brief summary admission note: This patient is a 33-year-old single male who was admitted to the mental health unit through the emergency room for acute suicidal ideation with suicide attempt. The patient had lacerated his wrist with a kitchen knife. He indicated his mental illness was getting worse and more worse. He felt hopeless and overwhelmed. He was experiencing paranoid thinking. He was experiencing auditory hallucinations directing self-harm and harm to others. He had not slept in several days appetite is been poor. Confounding the situation he had been excessively drinking alcohol and excessively using Adderall. For full details please refer to my psychiatric evaluation dated 03/13/2019. Summary of hospital course: The patient was admitted to the mental health unit voluntarily. We reviewed his treatment options in the context of his presenting symptoms. We decided to continue his Seroquel we added Abilify and Abilify was titrated eventually to 30 mg daily. Our plan was to cross taper off of the Seroquel but as we began reducing it he felt he was experiencing symptoms again. The Seroquel was reduced during the course of the hospitalization by 200 mg. At this time he feels that both medications are working well. He has reported a significant reduction in his auditory hallucinations. He states when he is talking to others or he is reading they are gone. He states that he is more able to distract himself from voices. He is experiencing no command auditory hallucinations. He is very pleased that he is finally able to read a book again as it's been several years since been able to do so. He was seen by internal medicine for routine history and physical exam. Social work met with the patient to complete a psychosocial assessment and begin discharge planning. The patient's mother was involved in a support meeting yesterday. The notes were reviewed from that meeting. The patient states that he feels comfortable being discharged he feels safe he demonstrates future oriented thinking. Mental status exam: The patient is a tall overweight male he is dressed in his own clothing hygiene grooming adequate. Eye contact remains impaired but it is improving at times. He indicates his mood is much better. Affect is brighter. He is reporting no suicidal or homicidal ideation intent or plan. He reports no visual hallucinations he is reporting no specific delusions. He states that auditory hallucinations are currently not present. They're noncommanding. He states he has more control over distracting himself from any hallucinations. He demonstrates no verbal or physical aggressiveness. He demonstrates no involuntary repetitive movements. Insight and judgment have improved and are grossly intact. He is oriented to person place and date. He describes future oriented thinking. He demonstrates no tangential thinking loose associations or any flight of ideas he does not appear hypomanic or manic. Impressions 1. Schizophrenia, stimulant use disorder moderate, alcohol use disorder moderate The patient is being discharged mental health unit today. He will return residing with his family. He will continue on Abilify 30 mg daily as well as Seroquel 100 mg in the morning 300 mg at bedtime. It was our goal to cross taper off of Seroquel as we started and titrated the Abilify however he clinically stabilized on the combination of these 2 medicines. An effort was made to begin tapering off of Seroquel but then he began reexperiencing acute symptoms. Once we read titrated the medicine those symptoms resolved. He has been tried on monotherapy with Geodon with Seroquel and we attempted to achieve monotherapy with just Abilify but that was not able to be accomplished during this hospitalization. We discussed that he may be able to be cross tapered off of the Seroquel in the outpatient setting. He may continue on the trazodone 100 mg at bedtime. This seems to have increased his ability to sleep at night. We were able to taper him off of the high-dose Benadryl and high-dose Vistaril he was using at home. He is instructed to abstain from any use of alcohol or marijuana Adderall or any other medicine not prescribed to him. We discussed that these would provoke symptoms of psychosis and elevate his safety risk. He was offered an opportunity to attend inpatient chemical dependency treatment several times but he declined that opportunity. At this time there is no imminent safety risk he is appropriate for continued care as an outpatient. Social work will arrange his outpatient mental health follow-up. He is instructed to return to the hospital if any acute safety concerns. Patient Condition at Discharge: Stable Plan - Discharge Summary Discharge Rx Participant: No New Discharge Prescriptions: New ARIPiprazole [Abilify] 30 mg PO DAILY #30 tab traZODone HCL [Desyrel] 100 mg PO HS #30 tab Nicotine 7Mg/24Hr Patch [Habitrol] 1 patch TRANSDERM DAILY #14 patch QUEtiapine [SEROquel] 100 mg PO DAILY #30 tab QUEtiapine [SEROquel] 300 mg PO HS #45 tab Discontinued diphenhydrAMINE [Benadryl] 150 mg PO HS hydrOXYzine PAMOATE 100 mg PO TID PRN PRN Reason: Anxiety Ziprasidone [Geodon] 80 mg PO BID QUEtiapine FUMARATE [SEROquel] 300 mg PO BID Dextroamphetamine/Amphetamine [Adderall] 40 mg PO BID Discharge Medication List ARIPiprazole [Abilify] 30 mg PO DAILY #30 tab 03/25/19 [Rx] Nicotine 7Mg/24Hr Patch [Habitrol] 1 patch TRANSDERM DAILY #14 patch 03/25/19 [Rx] QUEtiapine [SEROquel] 100 mg PO DAILY #30 tab 03/25/19 [Rx] QUEtiapine [SEROquel] 300 mg PO HS #45 tab 03/25/19 [Rx] traZODone HCL [Desyrel] 100 mg PO HS #30 tab 03/25/19 [Rx] Follow up Appointment(s)/Referral(s): Macario Olsen DO [Primary Care Provider] - 1-2 days Activity/Diet/Wound Care/Special Instructions: Activity and diet as tolerated. Avoid the use of street drugs and alcohol. Take all medications as prescribed. When you are in need of refills on your medications please contact your medical provider and/or outpatient psychiatrist to have this done. Please go to scheduled outpatient appointment for aftercare treatment. If symptoms return or become worse, call the crisis line at and/or go to the nearest emergency room for evaluation.
== END 2019-03-25 11:55 | disposition home or self-care (01) | DRG 885 ==
LOC: EC 14:51 → 3MHU 22:14
PROVIDERS: ADMIT Psychiatry & Neurology Psychiatry; ATTEND Psychiatry & Neurology Psychiatry
PROC: 3E0234Z Introduction of Serum, Toxoid and Vaccine into Muscle, Percutaneous Approach (ICD-10-PCS; principal; 2019-03-12)
PROC: 0HQEXZZ Repair Left Lower Arm Skin, External Approach (ICD-10-PCS; principal; 2019-03-12)
PROC: 0HQDXZZ Repair Right Lower Arm Skin, External Approach (ICD-10-PCS; principal; 2019-03-12)
DX: F20.9 Schizophrenia, unspecified (principal); R45.851 Suicidal ideations; F15.20 Other stimulant dependence, uncomplicated; Z68.41 Body mass index [BMI] 40.0-44.9, adult; E66.01 Morbid (severe) obesity due to excess calories; F10.20 Alcohol dependence, uncomplicated; Z23 Encounter for immunization; F41.9 Anxiety disorder, unspecified; S61.511A Laceration without foreign body of right wrist, initial encounter; S61.512A Laceration without foreign body of left wrist, initial encounter; F12.11 Cannabis abuse, in remission; F19.11 Other psychoactive substance abuse, in remission; G47.9 Sleep disorder, unspecified; F17.210 Nicotine dependence, cigarettes, uncomplicated; Z71.6 Tobacco abuse counseling; Z79.899 Other long term (current) drug therapy; Z91.5 Personal history of self-harm; Z71.3 Dietary counseling and surveillance; Z88.5 Allergy status to narcotic agent
CPT/HCPCS: 12002; 80053; 80061; 80306; 82075; 83036; 84443; 85025; 90471; 90715; 93005; 99285

== ENCOUNTER → 2022-11-06 | Outpatient (CLI) | payer MEDICARE, OTHER ==
--- NOTE | 2022-11-06 18:05 | CA ---
Transthoracic Echo Report Name: Vinny Aragon Age: 37 Gender: M : 1985 Exam Date: 11/06/2022 13:24 Exam Location: [facility] Ht (in): 74 Wt (lb): 488 Ordering Physician: Gurjit Meraz MD Attending/Referring Phys: Vertical Borer Jarret High Procedure CPT: Indications: I87.2 VENOUS INSUFFICIENCY (CHRONIC) (PERIPHERAL) Cardiac Hx: Technical Quality: Technically difficult study Contrast 1: Lumason Total Dose (mL): 5 Contrast 2: Total Dose (mL): MEASUREMENTS (Male / Female) Normal Values 2D ECHO RV Internal Dim ED PLAX 5.0 cm LVOT Diameter 2.5 cm Aortic Root Diameter 3.1 cm LA Systolic Diameter LX 2.9 cm 3.0 - 4.0 / 2.7 - 3.8 cm LV Diastolic Volume MOD 4C 102.7 cm??? LV Systolic Volume MOD 4C 68.2 cm??? LV Ejection Fraction MOD 4C 33.6 % LV Diastolic Length 4C 9.2 cm LV Systolic Length 4C 8.0 cm LA Volume 51.9 cm??? 18 - 58 / 22 - 52 cm??? DOPPLER AV Peak Velocity 103.2 cm/s AV Peak Gradient 4.3 mmHg LVOT Peak Velocity 89.6 cm/s LVOT Peak Gradient 3.2 mmHg LVOT Velocity Time Integral 15.8 cm LVOT Stroke Volume 79.1 cm??? LVOT Stroke Volume Index 24.9 ml/m??? AV Area Cont Eq pk 4.4 cm??? MV Peak Velocity 79.1 cm/s MV Peak Gradient 2.5 mmHg MV Mean Velocity 48.8 cm/s MV Mean Gradient 1.1 mmHg MV Velocity Time Integral 20.6 cm Mitral E Point Velocity 72.9 cm/s Mitral A Point Velocity 69.5 cm/s Mitral E to A Ratio 1.0 MV Deceleration Time 212.2 ms MV E' Velocity 9.5 cm/s Mitral E to MV E' Ratio 7.7 TR Peak Velocity 207.1 cm/s TR Peak Gradient 17.2 mmHg Right Ventricular Systolic Press 23.1 mmHg PV Peak Velocity 120.6 cm/s PV Peak Gradient 5.8 mmHg FINDINGS Left Ventricle Normal LV size and wall thickness. Left ventricular ejection fraction is estimated at 55-60 %. Right Ventricle Moderate right ventricular dilatation. RVSP= 31mmHg. Global hypokinesis Right Atrium Moderate right atrial dilatation. Left Atrium Normal left atrial size. Mitral Valve Structurally normal mitral valve. No mitral regurgitation. No mitral stenosis. Aortic Valve Trileaflet aortic valve. No aortic valve stenosis or regurgitation. Tricuspid Valve Tricuspid valve not well visualized. Mild TR. Pulmonic Valve Pulmonic valve not well visualized. No pulmonic regurgitation. Pericardium Normal pericardium. Aorta Normal size aortic root . CONCLUSIONS Technically very difficult and limited study.lumason ECHO contrast used for improved visualization of the endocardial borders (inadequate visualization of two or more contiguous segments). 1. Normal left ventricle size and systolic function 2. Dilated right ventricle with global hypokinesis 3. Very limited Doppler study was mild tricuspid regurgitation Previewed by: Dr. Mirtha Soto MD (Electronically Signed) Final Date: 06 November 2022 18:04
== END | disposition home or self-care (01) ==
LOC: RADECHMAIN 13:21
PROVIDERS: ATTEND Internal Medicine
DX: I34.0 Nonrheumatic mitral (valve) insufficiency (principal); I87.2 Venous insufficiency (chronic) (peripheral)
CPT/HCPCS: C8929; Q9950; 93306

== ENCOUNTER 2024-02-29 00:22 | Emergency (ER) | payer MEDICARE, OTHER ==
--- NOTE | 2024-02-29 02:46 | ED ---
General Adult HPI - General Chief complaint: Psychiatric Symptoms Stated complaint: Mental Health, LE Pick-up Order Time Seen by Provider: 02/29/24 01:16 Source: police Mode of arrival: ambulatory Limitations: no limitations - History of Present Illness Initial comments: History is limited by patient's underlying psychiatric disorder. Pt reports he was brought in by police on a court order from a movie projectionist because his mother is fighting for guardianship of him. The patient himself has no complaints states he does have history of schizophrenia but does not take any medications for it. He denies SI/HI, auditory or visual hallucinations. Denies alcohol or drug use. Denies any pain or other complaints at this time - Related Data Home Medications Medication Instructions Recorded Confirmed No Known Home Medications 02/29/24 02/29/24 Allergies Allergy/AdvReac Type Severity Reaction Status Date / Time propoxyphene Allergy Intermediate Rash/Hives Verified 02/29/24 09:33 [From [facility]N 100] Review of Systems ROS Statement: Those systems with pertinent positive or pertinent negative responses have been documented in the HPI. ROS Other: All systems not noted in ROS Statement are negative. Past Medical History Past Medical History: No Reported History History of Any Multi-Drug Resistant Organisms: None Reported Past Surgical History: Orthopedic Surgery Past Psychological History: Bipolar, Depression Smoking Status: Current every day smoker Past Alcohol Use History: Abuse, Daily, Heavy Past Drug Use History: Marijuana, Prescription Drug Abuse General Exam - General Exam Comments Initial Comments: PE: CONSTITUTIONAL: [no apparent distress, well appearing] SKIN: [warm, dry, no jaundice, hives or petechiae. few 1 cm in diameter circular scars scattered on forearms, pt states are old self inflicted cigarette matson] EYES:[ pupils are equally round, extraocular movements intact without nystagmus, clear conjunctiva, non-icteric sclera] HENT: [normocephalic, atraumatic, moist mucus membranes, oropharynx clear without exudates] NECK: , [Full range of motion, normal appearance] PULMONARY: [clear to auscultation without wheezes, rhonchi, or rales, normal excursion, no accessory muscle use and no stridor] CARDIOVASCULAR:[ regular rate, rhythm, normal S1 and S2. No appreciated murmurs, rubs or gallops. Extremities well perfused No lower extremity edema] GASTROINTESTINAL: [nondistended] GENITOURINARY: MUSCULOSKELETAL: [Extremities have no gross deformity No calf swelling ] NEUROLOGIC: [_a/o x 3, GCS 15, normal mentation and speech. Moves all extremities x 4 without motor or sensory deficit] PSYCHIATRIC:[ _normal mood and suspicious, affect, thought process is tangential, speech is rapid and pressured at times, when I walked to pts room he appeared to be talking to someone in the corner of his room that was not there, though does not respond to internal stimuli when talking with myself] Course Vital Signs 02/29/24 02/29/24 03/01/24 00:24 08:25 07:48 Temperature 97.7 F 99.1 F Pulse Rate 88 103 H Respiratory 18 22 18 Rate Blood Pressure 151/84 152/92 O2 Sat by Pulse 97 96 Oximetry 03/01/24 03/01/24 03/01/24 08:49 09:13 15:37 Temperature Pulse Rate Respiratory 18 16 19 Rate Blood Pressure O2 Sat by Pulse Oximetry 03/01/24 03/02/24 03/03/24 15:57 20:48 18:47 Temperature 98.2 F 97.9 F 98.2 F Pulse Rate 88 66 74 Respiratory 17 16 18 Rate Blood Pressure 115/75 137/78 131/82 O2 Sat by Pulse 94 L 99 99 Oximetry 03/04/24 03/05/24 03/05/24 09:00 05:05 09:00 Temperature 98.2 F 97.8 F Pulse Rate 84 51 L 60 Respiratory 18 18 18 Rate Blood Pressure 121/79 110/72 123/77 O2 Sat by Pulse 98 96 100 Oximetry 03/05/24 03/05/24 03/05/24 12:35 15:22 16:39 Temperature Pulse Rate 69 54 L 59 L Respiratory 18 18 18 Rate Blood Pressure 125/72 107/63 128/83 O2 Sat by Pulse 100 100 98 Oximetry 03/06/24 06:00 Temperature 98.8 F Pulse Rate 68 Respiratory 18 Rate Blood Pressure 127/86 O2 Sat by Pulse 99 Oximetry Procedures - Restraint - Face to Face Restraint Occurrence 1 Patient's Immediate Situation: Endangers others' safety, Endangers staff safety Patient's Immediate Situation - Comment: Patient verbally aggressive, refusing to go back in his room, lunged towards staff, refusing oral medications Patient's Reaction to the Intervention: Angry, Suspicious, Aggressive, Resistive to care Patient's Medical & Behavioral Condition: Awake, Alert, Follows directions, Agitated, Paranoid, Manic, Flight of ideas Need to Continue or Terminate Restraint or Seclusion: Continue Face to Face Eval of Restraint Date: 02/29/24 Face to Face Eval of Restraint Time: 06:26 Medical Decision Making - Medical Decision Making Was pt. sent in by a medical professional or institution (, PA, CORRECTIONAL SUPPLY SUPERVISOR, urgent care, hospital, or fdc...) When possible be specific @ -Patient was brought in by police on court order Did you speak to anyone other than the patient for history (EMS, parent, family, police, friend...)? What history was obtained from this source @ -No Did you review nursing and triage notes (agree or disagree)? Why? @ -I reviewed nursing and triage notes Were old charts reviewed (outside hosp., previous admission, EMS record, old EKG, old radiological studies, urgent care reports/EKG's, fdc records)? Report findings Medical records reviewed-Patient was admitted on 03/13/2019 for suicidal ideation after lacerating his wrist with a knife reviewed H&P from this visit, of note patient had been experiencing auditory hallucinations at that time at that time it appeared patient had been prescribed Adderall, Seroquel, Geodon and Vistaril Reviewed court order for patient to be examined by psychiatry, states that patient's mother has observed patient having manic behavior, talking and screaming obscenities at her, hearing voices due to schizophrenia, she has observed near violent behavior, Differential Diagnosis (chest pain, altered mental status, abdominal pain women, abdominal pain men, vaginal bleeding, weakness, fever, dyspnea, syncope, headache, dizziness, GI bleed, back pain, seizure, CVA, palpatations, mental health, musculoskeletal)? @Differential Mental Health Depression, anxiety, bipolar, psychosis, schizophrenia, borderline personality, situational depression, adjustment disorder, behavioral disorder, brain tumor, malingering, substance abuse, medication reaction, .... This is not meant to be all-inclusive list EKG interpreted by me (3pts min.). @ -As above X-rays interpreted by me (1pt min.). @ -None done CT interpreted by me (1pt min.). @ -None done U/S interpreted by me (1pt. min.). @ -None done What testing was considered but not performed or refused? (CT, X-rays, U/S, labs)? Why? @ -None What meds were considered but not given or refused? Why? @ -None Did you discuss the management of the patient with other professionals (professionals i.e. Dr., PA, CORRECTIONAL SUPPLY SUPERVISOR, lab, RT, psych nurse, foster care social worker, electrotype caster, teacher, general service officer, lead case manager)? Give summary @ -No Was smoking cessation discussed for >3mins.? @ -No Was critical care preformed (if so, how long)? @Yes, 35 minutes Were there social determinants of health that impacted care today? How? (Homelessness, low income, unemployed, alcoholism, drug addiction, transportation, low edu. Level, literacy, decrease access to med. care, halfway, rehab)? @ -No Was there de-escalation of care discussed even if they declined (Discuss DNR or withdrawal of care, Hospice)? @ -No What co-morbidities impacted this encounter? (DM, HTN, Smoking, COPD, CAD, Cancer, CVA, ARF, Chemo, Hep., AIDS, mental health diagnosis, sleep apnea, morbid obesity)? @Schizophrenia Was patient admitted / discharged? Hospital course, mention meds given and route, prescriptions, significant lab abnormalities, going to OR and other pertinent info. @Signed out to oncoming physician, Dr. Dyson pending placement- patient is a 38-year-old gentleman presenting today via PD on court order. On my assessment patient appears to be speaking to somebody in his room that is not there, he is pleasant, AO x 3 though at times speech is tangential, rapid and pressured. He does see somewhat suspicious as well, when I asked if I could perform a physical exam he stated he did not want a stranger performing an exam on him but was ultimately agreeable with my auscultating his heart and lungs. Given patient has psychiatric history including previously documented history of schizophrenia and exam congruent with this I do not feel additional labs and imaging are indicated at this time. Patient cleared for EPS evaluation. Of note while awaiting EPS evaluation patient did have some loud outbursts, when talking to himself, but is redirectable. Patient seen by EPS. He does need to be admitted to inpatient psychiatry per EPS evaluation however patient exceeds the weight limit on the beds of our psychiatric floor here so will need to be transferred. Patient was heard to have an angry outburst and walked in the hallway. Patient screaming at staff and was not verbally redirectable. Patient refused to go back into his room. As I tried to calmly redirect patient he stepped towards me causing security to step in front of the pt and direct patient back into his room where he continued screaming at staff. Pt was offered oral anxiolysis purdyjena watson refused, screaming about how I reminded him of his mother. For staff and patient safety, IM ativan, zyprexa and benadryl ordered and administered. Pt has been on geodon in the past as well as seroquel, per chart review, so additional PRNs ordered if needed. Pt continued screaming at staff and attempting to leave room. Ultimately hard restraints needed to be pllaced for pt and staff safety. Pt signed out to oncoming physician briefly after this pending inpatient psychiatric placement. Patient accepted for transfer to [facility]. Undiagnosed new problem with uncertain prognosis? @ -No Drug Therapy requiring intensive monitoring for toxicity (Heparin, Nitro, Insulin, Cardizem)? @ -No Were any procedures done? @ -No Diagnosis/symptom? @Acute psychosis schizophrenia Acute, or Chronic, or Acute on Chronic? @ Acute Uncomplicated (without systemic symptoms) or Complicated (systemic symptoms)? @complicated Side effects of treatment? @ -No Exacerbation, Progression, or Severe Exacerbation? @ -No Poses a threat to life or bodily function? How? (Chest pain, USA, [place], pneumonia, PE, COPD, DKA, ARF, appy, cholecystitis, CVA, Diverticulitis, Homicidal, Suicidal, threat to staff... and all critical care pts) @ -yes - Lab Data Result diagrams: 02/29/24 05:26 02/29/24 05:26 Lab Results 02/29/24 02/29/24 02/29/24 Range/Units 03:00 03:00 03:14 WBC (3.8-10.6) k/uL RBC (4.30-5.90) m/uL Hgb (13.0-17.5) gm/dL Hct (39.0-53.0) % MCV (80.0-100.0) fL MCH (25.0-35.0) pg MCHC (31.0-37.0) g/dL RDW (11.5-15.5) % Plt Count (150-450) k/uL MPV Neutrophils % % Lymphocytes % % Monocytes % % Eosinophils % % Basophils % % Neutrophils # (1.3-7.7) k/uL Lymphocytes # (1.0-4.8) k/uL Monocytes # (0-1.0) k/uL Eosinophils # (0-0.7) k/uL Basophils # (0-0.2) k/uL Sodium (137-145) mmol/L Potassium (3.5-5.1) mmol/L Chloride (98-107) mmol/L Carbon Dioxide (22-30) mmol/L Anion Gap mmol/L BUN (9-20) mg/dL Creatinine (0.66-1.25) mg/dL Est GFR (CKD-EPI)AfAm (>60 ml/min/1.73 sqM) Est GFR (CKD-EPI)NonAf (>60 ml/min/1.73 sqM) Glucose (74-99) mg/dL Calcium (8.4-10.2) mg/dL Total Bilirubin (0.2-1.3) mg/dL AST (17-59) U/L ALT (4-49) U/L Alkaline Phosphatase (38-126) U/L Total Protein (6.3-8.2) g/dL Albumin (3.5-5.0) g/dL TSH (0.465-4.680) mIU/L Urine Color Yellow Urine Appearance Clear (Clear) Urine pH 5.0 (5.0-8.0) Ur Specific [place] 1.022 (1.001-1.035) Urine Protein Negative (Negative) Urine Glucose (UA) Negative (Negative) Urine Ketones Negative (Negative) Urine Blood Negative (Negative) Urine Nitrite Negative (Negative) Urine Bilirubin Negative (Negative) Urine Urobilinogen <2.0 (<2.0) mg/dL Ur Leukocyte Esterase Negative (Negative) Urine Opiates Screen Not Detected (NotDetected) Ur Oxycodone Screen Not Detected (NotDetected) Urine Methadone Screen Not Detected (NotDetected) Ur Barbiturates Screen Not Detected (NotDetected) U Tricyclic Antidepress Not Detected (NotDetected) Ur Phencyclidine Scrn Not Detected (NotDetected) Ur Amphetamines Screen Not Detected (NotDetected) U Methamphetamines Scrn Not Detected (NotDetected) U Benzodiazepines Scrn Not Detected (NotDetected) Urine Cocaine Screen Not Detected (NotDetected) U Marijuana (THC) Screen Not Detected (NotDetected) SARS-CoV-2 (PCR) Not Detected (Not Detectd) 02/29/24 02/29/24 Range/Units 05:26 05:26 WBC 10.9 H (3.8-10.6) k/uL RBC 4.99 (4.30-5.90) m/uL Hgb 15.3 (13.0-17.5) gm/dL Hct 48.0 (39.0-53.0) % MCV 96.1 (80.0-100.0) fL MCH 30.7 (25.0-35.0) pg MCHC 31.9 (31.0-37.0) g/dL RDW 14.9 (11.5-15.5) % Plt Count 289 (150-450) k/uL MPV 6.6 Neutrophils % 70 % Lymphocytes % 23 % Monocytes % 4 % Eosinophils % 2 % Basophils % 1 % Neutrophils # 7.6 (1.3-7.7) k/uL Lymphocytes # 2.5 (1.0-4.8) k/uL Monocytes # 0.4 (0-1.0) k/uL Eosinophils # 0.2 (0-0.7) k/uL Basophils # 0.1 (0-0.2) k/uL Sodium 138 (137-145) mmol/L Potassium 4.3 (3.5-5.1) mmol/L Chloride 102 (98-107) mmol/L Carbon Dioxide 29 (22-30) mmol/L Anion Gap 7 mmol/L BUN 15 (9-20) mg/dL Creatinine 0.58 L (0.66-1.25) mg/dL Est GFR (CKD-EPI)AfAm >90 (>60 ml/min/1.73 sqM) Est GFR (CKD-EPI)NonAf >90 (>60 ml/min/1.73 sqM) Glucose 104 H (74-99) mg/dL Calcium 9.4 (8.4-10.2) mg/dL Total Bilirubin 0.9 (0.2-1.3) mg/dL AST 30 (17-59) U/L ALT 30 (4-49) U/L Alkaline Phosphatase 103 (38-126) U/L Total Protein 7.2 (6.3-8.2) g/dL Albumin 4.2 (3.5-5.0) g/dL TSH 2.460 (0.465-4.680) mIU/L Urine Color Urine Appearance (Clear) Urine pH (5.0-8.0) Ur Specific [place] (1.001-1.035) Urine Protein (Negative) Urine Glucose (UA) (Negative) Urine Ketones (Negative) Urine Blood (Negative) Urine Nitrite (Negative) Urine Bilirubin (Negative) Urine Urobilinogen (<2.0) mg/dL Ur Leukocyte Esterase (Negative) Urine Opiates Screen (NotDetected) Ur Oxycodone Screen (NotDetected) Urine Methadone Screen (NotDetected) Ur Barbiturates Screen (NotDetected) U Tricyclic Antidepress (NotDetected) Ur Phencyclidine Scrn (NotDetected) Ur Amphetamines Screen (NotDetected) U Methamphetamines Scrn (NotDetected) U Benzodiazepines Scrn (NotDetected) Urine Cocaine Screen (NotDetected) U Marijuana (THC) Screen (NotDetected) SARS-CoV-2 (PCR) (Not Detectd) Disposition Clinical Impression: Acute psychosis Disposition: TRANSFER TO PSYCH HOSP/UNIT Referrals: Gurjit Meraz DO [Primary Care Provider] - 1-2 days
[2024-02-29 04:23] LABS: Amphetamine Screen,Urine Not Detected (NotDetected); Barbiturate Screen,Urine Not Detected (NotDetected); Benzodiazepines Screen,Urine Not Detected (NotDetected); Cocaine Screen,Urine Not Detected (NotDetected); Methadone Screen, Urine Not Detected (NotDetected); Opiate Screen,Urine Not Detected (NotDetected); Oxycodone Screen, Urine Not Detected (NotDetected); Phencyclidine Screen,Urine Not Detected (NotDetected); Tricyclic Antidepressant,Urine Not Detected (NotDetected); Urn Cannabinoid Scrn Not Detected (NotDetected)
[2024-02-29 05:32] LABS: Basophils # (A) 0.1 k/uL (0-0.2); Basophils % (A) 1 %; Eosinophils # (A) 0.2 k/uL (0-0.7); Eosinophils % (A) 2 %; HGB 15.3 gm/dL (13.0-17.5); Lymphocytes # (A) 2.5 k/uL (1.0-4.8); Lymphocytes % (A) 23 %; MCH 30.7 pg (25.0-35.0); MCHC 31.9 g/dL (31.0-37.0); MCV 96.1 fL (80.0-100.0); Mean Platelet Volume 6.6; Monocytes # (A) 0.4 k/uL (0-1.0); Monocytes % (A) 4 %; Neutrophils # (A) 7.6 k/uL (1.3-7.7); Neutrophils % (A) 70 %; Platelet Count 289 k/uL (150-450); RBC 4.99 m/uL (4.30-5.90); RDW 14.9 % (11.5-15.5); WBC 10.9 k/uL (3.8-10.6)
[2024-02-29 05:34] LABS: Appearance,Urine Clear (Clear); Bilirubin,Urine Negative (Negative); Blood,Urine Negative (Negative); Color,Urine Yellow; Glucose,Urine (UA) Negative (Negative); Ketones,Urine Negative (Negative); Leukocyte Esterase,Urine Negative (Negative); Nitrite,Urine Negative (Negative); Protein,Urine Negative (Negative); Specific Gravity,Urine 1.022 (1.001-1.035); Urobilinogen,Urine <2.0 mg/dL (<2.0)
[2024-02-29 05:44] LABS: ALT 30 U/L (4-49); AST 30 U/L (17-59); African American GFR (CKD) >90 (>60 ml/min/1.73 sqM); Albumin 4.2 g/dL (3.5-5.0); Alkaline Phosphatase 103 U/L (38-126); Anion Gap 7 mmol/L; Blood Urea Nitrogen 15 mg/dL (9-20); Calcium 9.4 mg/dL (8.4-10.2); Carbon Dioxide 29 mmol/L (22-30); Chloride 102 mmol/L (98-107); Glucose 104 mg/dL (74-99); Non-African American GFR(CKD) >90 (>60 ml/min/1.73 sqM); Potassium 4.3 mmol/L (3.5-5.1); Sodium 138 mmol/L (137-145); Total Bilirubin 0.9 mg/dL (0.2-1.3); Total Protein 7.2 g/dL (6.3-8.2)
[2024-02-29] MEDS: diphenhydrAMINE 50 MG/ML 1 ML VIAL IM STA (05:59)
[2024-02-29] MEDS: OLANZapine 10 MG VIAL IM STA (05:59)
[2024-02-29] MEDS: LORazepam 2 MG/ML INJ IM STA (05:59)
[2024-02-29] MEDS ORDERED: LORazepam 2 MG/ML INJ IM PRN (06:07)
[2024-02-29] MEDS ORDERED: ZIPRASIDONE 20 MG VIAL IM PRN (06:07)
[2024-02-29] MEDS: QUEtiapine 100 MG TAB PO STA (08:30)
[2024-03-03 18:51] VITALS: RESP 18
[2024-03-06 06:24] VITALS: BP 127/86; PULSE 68; TEMP 98.8
== END 2024-03-06 06:25 ==
LOC: EC 00:22
DX: F23 Brief psychotic disorder (principal); F17.200 Nicotine dependence, unspecified, uncomplicated; Z88.8 Allergy status to other drugs, medicaments and biological substances; Z11.52 Encounter for screening for COVID-19
CPT/HCPCS: 82075; 36415; 80053; 84443; 85025; 81003; 80306; 87635; 99291; 96372 ×3; J2060; J1200

== ENCOUNTER 2024-08-30 10:03 | Emergency (ER) | payer MEDICARE, OTHER ==
[2024-08-30 10:19] VITALS: RESP 20
--- NOTE | 2024-08-30 11:58 | ED ---
General Adult HPI - General Chief complaint: Psychiatric Symptoms Stated complaint: Suicidal ideations Time Seen by Provider: 08/30/24 11:50 Source: patient, RN notes reviewed, old records reviewed Mode of arrival: ambulatory Limitations: no limitations - History of Present Illness Initial comments: This is a 39-year-old male who presents to the emergency department stating that he is having suicidal thoughts. Patient states he also might be having some paranoid thoughts. Patient states [facility] and thought people were talking about him so he left and went to days in but he ran out of money so now he is homeless and comes to the emergency department stating he does not know what he should do and he thinks he should probably end at all but he has no plan and has not thought about a plan. - Related Data Home Medications Medication Instructions Recorded Confirmed No Known Home Medications 02/29/24 02/29/24 Allergies Allergy/AdvReac Type Severity Reaction Status Date / Time propoxyphene Allergy Intermediate Rash/Hives Verified 08/30/24 10:12 [From [facility]-N 100] Review of Systems ROS Statement: Those systems with pertinent positive or pertinent negative responses have been documented in the HPI. ROS Other: All systems not noted in ROS Statement are negative. Past Medical History Past Medical History: No Reported History History of Any Multi-Drug Resistant Organisms: None Reported Past Surgical History: Orthopedic Surgery Past Psychological History: Bipolar, Depression Smoking Status: Current every day smoker Past Alcohol Use History: Abuse, Daily, Heavy Past Drug Use History: Marijuana, Prescription Drug Abuse General Exam - General Exam Comments Initial Comments: GENERAL: Patient is well-developed and well-nourished. Patient is nontoxic and well- hydrated and is in no acute distress. ENT: Neck is soft and supple. No significant lymphadenopathy is noted. Oropharynx is clear. Moist mucous membranes. Neck has full range of motion without eliciting any pain. EYES: The sclera were anicteric and conjunctiva were pink and moist. Extraocular movements were intact and pupils were equal round and reactive to light. Eyelids were unremarkable. SKIN: Skin is clear with no lesions or rashes and otherwise unremarkable. NEUROLOGIC: Patient is alert and oriented x3. Cranial nerves II through XII are grossly intact. Motor and sensory are also intact. Normal speech, volume and content. Symmetrical smile. MUSCULOSKELETAL: Normal extremities with adequate strength and full range of motion. LYMPHATICS: No significant lymphadenopathy is noted PSYCHIATRIC: Patient states he is wondering if he should end at all. Limitations: no limitations Course Vital Signs 08/30/24 10:10 Temperature 97.5 F L Pulse Rate 102 H Respiratory 20 Rate Blood Pressure 130/82 O2 Sat by Pulse 99 Oximetry Medical Decision Making - Medical Decision Making Was pt. sent in by a medical professional or institution (, [facility], BODY SHOP MECHANIC, urgent care, hospital, or assisted...) When possible be specific @ -No Did you speak to anyone other than the patient for history (EMS, parent, family, police, friend...)? What history was obtained from this source @ -No Did you review nursing and triage notes (agree or disagree)? Why? @ -I reviewed and agree with nursing and triage notes Were old charts reviewed (outside hosp., previous admission, EMS record, old EKG, old radiological studies, urgent care reports/EKG's, assisted records)? Report findings @ -No old charts were reviewed Differential Diagnosis? @ -Differential Mental Health Depression, anxiety, bipolar, psychosis, schizophrenia, borderline personality, situational depression, adjustment disorder, behavioral disorder, brain tumor, malingering, substance abuse, encephalopathy, medication reaction, dementia, hypothyroidism, degenerative neurologic disorder, lupus.... This is not meant to be all-inclusive list EKG interpreted by me (3pts min.). @ -As above X-rays interpreted by me (1pt min.). @ -None done CT interpreted by me (1pt min.). @ -None done U/S interpreted by me (1pt. min.). @ -None done What testing was considered but not performed or refused? (CT, X-rays, U/S, labs)? Why? @ -None What meds were considered but not given or refused? Why? @ -None Did you discuss the management of the patient with other professionals (professionals i.e. MILKA Small, BODY SHOP MECHANIC, lab, RT, psych nurse, social worker school, power generation technician, teacher, forest fire management officer, manager case)? Give summary @ -I spoke with the EPS nurse and they spoke with the patient as well as a psychiatrist and determined that the patient could be safely discharged home Was smoking cessation discussed for >3mins.? @ -No Was critical care preformed (if so, how long)? @ -No Were there social determinants of health that impacted care today? How? (Homele ssness, low income, unemployed, alcoholism, drug addiction, transportation, low edu. Level, literacy, decrease access to med. care, half-way, rehab)? @ -No Was there de-escalation of care discussed even if they declined (Discuss DNR or withdrawal of care, Hospice)? DNR status @ -No What co-morbidities impacted this encounter? (DM, HTN, Smoking, COPD, CAD, Cancer, CVA, ARF, Chemo, Hep., AIDS, mental health diagnosis, sleep apnea, morbid obesity)? @ -None Was patient admitted / discharged? Hospital course, mention meds given and route, prescriptions, significant lab abnormalities, going to OR and other pertinent info. @ -Patient came in because he had no place to stay he stated he ran out of money for the hotel and he could [facility] back [facility]. EPS evaluated the patient and determined the patient would be safe the patient himself stated he would be safe and so the patient be discharged home to a penitentiary Undiagnosed new problem with uncertain prognosis? @ -No Drug Therapy requiring intensive monitoring for toxicity (Heparin, Nitro, Insulin, Cardizem)? @ -No Were any procedures done? @ -No Diagnosis/symptom? @ -Situational depression Acute, or Chronic, or Acute on Chronic? @ -Acute Uncomplicated (without systemic symptoms) or Complicated (systemic symptoms)? @ -Complicated Side effects of treatment? @ -No Exacerbation, Progression, or Severe Exacerbation? @ -No Poses a threat to life or bodily function? How? (Chest pain, [place], [place], pneumonia, PE, COPD, DKA, ARF, appy, cholecystitis, CVA, Diverticulitis, Homicidal, Suicidal, threat to staff... and all critical care pts) @ -No Disposition Clinical Impression: Situational depression Disposition: HOME SELF-CARE Instructions (If sedation given, give patient instructions): Depression (ED) Additional Instructions: Follow the safety plan Is patient prescribed a controlled substance at d/c from ED?: No Referrals: Gurjit Meraz DO [Primary Care Provider] - 1-2 days Time of Disposition: 13:33
[2024-08-30 14:10] VITALS: BP 122/78; PULSE 90; TEMP 97.6
== END 2024-08-30 13:45 | disposition home or self-care (01) ==
LOC: EC 10:03
DX: F43.21 Adjustment disorder with depressed mood (principal); F17.200 Nicotine dependence, unspecified, uncomplicated; Z88.8 Allergy status to other drugs, medicaments and biological substances
CPT/HCPCS: 82075; 99284

== ENCOUNTER 2024-09-08 10:12 | Inpatient (IN) | payer MEDICARE, OTHER ==
--- NOTE | 2024-09-08 11:15 | ED ---
URI HPI - General Chief Complaint: Upper Respiratory Infection Stated Complaint: SOB Time Seen by Provider: 09/08/24 10:26 Source: patient, RN notes reviewed Mode of arrival: wheelchair Limitations: no limitations - History of Present Illness Initial Comments: 39-year-old male presents emergency department with chief complaint of cough congestion shortness of breath. Patient states he has been having increasing cough congestion last several days. Patient states he feels short of breath. Patient states that he used to be a former smoker no history of asthma or COPD. Patient states he has a productive cough. No history of congestive heart failur e no leg pain or swelling of that his normal. He states he is very overweight and normally has some. Patient denies any abdominal pain he states possible fever, does complain of bodyaches and nasal congestion. - Related Data Home Medications Medication Instructions Recorded Confirmed risperiDONE [RisperDAL] 1 mg PO HS 09/08/24 09/08/24 Allergies Allergy/AdvReac Type Severity Reaction Status Date / Time propoxyphene Allergy Intermediate Rash/Hives Verified 09/08/24 11:17 [[facility] Review of Systems ROS Statement: Those systems with pertinent positive or pertinent negative responses have been documented in the HPI. ROS Other: All systems not noted in ROS Statement are negative. Past Medical History Past Medical History: No Reported History Additional Past Medical History / Comment(s): Obese History of Any Multi-Drug Resistant Organisms: None Reported Past Surgical History: Orthopedic Surgery Past Psychological History: Bipolar, Depression Smoking Status: Current every day smoker Past Alcohol Use History: Abuse, Daily, Heavy Past Drug Use History: Marijuana, Prescription Drug Abuse General Exam Limitations: no limitations General appearance: alert, in no apparent distress, obese Head exam: Present: atraumatic, normocephalic, normal inspection Eye exam: Present: normal appearance, PERRL, EOMI. Absent: scleral icterus, conjunctival injection, periorbital swelling ENT exam: Present: normal exam, mucous membranes moist Neck exam: Present: normal inspection, full ROM. Absent: tenderness, meningismus, lymphadenopathy Respiratory exam: Present: wheezes, rhonchi. Absent: normal lung sounds bilaterally, respiratory distress, rales, stridor Cardiovascular Exam: Present: normal rhythm, tachycardia, normal heart sounds. Absent: systolic murmur, diastolic murmur, rubs, gallop, clicks GI/Abdominal exam: Present: soft, normal bowel sounds. Absent: distended, tenderness, guarding, rebound, rigid Course Vital Signs 09/08/24 09/08/24 09/08/24 10:21 10:25 11:29 Temperature 98.9 F Pulse Rate 108 H 72 Respiratory 24 23 Rate Blood Pressure 145/79 O2 Sat by Pulse 91 L Oximetry 09/08/24 09/08/24 11:42 12:04 Temperature Pulse Rate 84 94 Respiratory 26 H Rate Blood Pressure 143/78 O2 Sat by Pulse 93 L Oximetry Medical Decision Making - Medical Decision Making Was pt. sent in by a medical professional or institution (, PA, MOTOR DRIVER, urgent care, hospital, or usp...) When possible be specific @ -No Did you speak to anyone other than the patient for history (EMS, parent, family, police, friend...)? What history was obtained from this source @ -No Did you review nursing and triage notes (agree or disagree)? Why? @ -I reviewed and agree with nursing and triage notes Were old charts reviewed (outside hosp., previous admission, EMS record, old EKG, old radiological studies, urgent care reports/EKG's, usp records)? Report findings @ -No old charts were reviewed Differential Diagnosis (chest pain, altered mental status, abdominal pain women, abdominal pain men, vaginal bleeding, weakness, fever, dyspnea, syncope, headache, dizziness, GI bleed, back pain, seizure, CVA, palpatations, mental health, musculoskeletal)? @ -Differential Dyspnea: Coronary syndrome, arrhythmia, tamponade, asthma, COPD, pulmonary embolism, pneumonia, pneumothorax, pulmonary effusion, anaphylaxis, diabetic ketoacidosis, flailed chest, pulmonary contusion, diaphragmatic rupture, anemia, neuromuscular, this is not meant to be an all-inclusive list. EKG interpreted by me (3pts min.). @ -As above X-rays interpreted by me (1pt min.). @ -Chest x-ray shows bilateral pneumonia CT interpreted by me (1pt min.). @ -None done U/S interpreted by me (1pt. min.). @ -None done What testing was considered but not performed or refused? (CT, X-rays, U/S, labs)? Why? @ -None What meds were considered but not given or refused? Why? @ -None Did you discuss the management of the patient with other professionals ( professionals i.e. DrMona, PA, MOTOR DRIVER, lab, RT, psych nurse, older adult social work specialist, barytes grinder, teacher, tax revenue officer, lead case manager)? Give summary @ -Sound physician for admission Was smoking cessation discussed for >3mins.? @ -No Was critical care preformed (if so, how long)? @ -No Were there social determinants of health that impacted care today? How? (Homelessness, low income, unemployed, alcoholism, drug addiction, transportation, low edu. Level, literacy, decrease access to med. care, group home, rehab)? @ -No Was there de-escalation of care discussed even if they declined (Discuss DNR or withdrawal of care, Hospice)? DNR status @ -No What co-morbidities impacted this encounter? (DM, HTN, Smoking, COPD, CAD, Cancer, CVA, ARF, Chemo, Hep., AIDS, mental health diagnosis, sleep apnea, morbid obesity)? @ -None Was patient admitted / discharged? Hospital course, mention meds given and route, prescriptions, significant lab abnormalities, going to OR and other pertinent info. @ -Admitted patient is found to have multifocal pneumonia, acute hypoxia. Patient was given breathing treatment, steroids, dual antibiotic therapy, blood cultures were drawn. Patient will be admitted for pulmonary evaluation Undiagnosed new problem with uncertain prognosis? @ -No Drug Therapy requiring intensive monitoring for toxicity (Heparin, Nitro, Insulin, Cardizem)? @ -No Were any procedures done? @ -No Diagnosis/symptom? @Multifocal pneumonia, hypoxia] Acute, or Chronic, or Acute on Chronic? @ -Acute Uncomplicated (without systemic symptoms) or Complicated (systemic symptoms)? @ -Complicated Side effects of treatment? @ -No Exacerbation, Progression, or Severe Exacerbation? @ -No Poses a threat to life or bodily function? How? (Chest pain, [place], [place], pneumonia, PE, COPD, DKA, ARF, appy, cholecystitis, CVA, Diverticulitis, Homicidal, Suicidal, threat to staff... and all critical care pts) @ -Yes risk of pulmonary function - Lab Data Result diagrams: 09/08/24 11:40 09/08/24 11:40 Lab Results 09/08/24 09/08/24 09/08/24 Range/Units 11:40 11:40 11:40 WBC 12.23 H (4.50-10.00) 10*3/uL RBC 4.55 (4.40-5.60) 10*6/uL Hgb 14.4 (13.0-17.0) g/dL Hct 43.8 (39.6-50.0) % MCV 96.3 (80.0-97.0) fL MCH 31.6 (27.0-32.0) pg MCHC 32.9 (32.0-37.0) g/dL Plt Count 235 (140-440) 10*3/uL MPV 9.6 (9.5-12.2) fL Immature Gran % (Auto) 0.7 % Neutrophils % 80.4 % Lymphocytes % 9.7 % Monocytes % 8.0 % Eosinophils % 0.8 % Basophils % 0.4 % Immature Gran # 0.09 H (0.00-0.04) 10*3/uL Neutrophils # 9.82 H (1.80-7.70) 10*3/uL Lymphocytes # 1.19 (0.90-5.00) 10*3/uL Monocytes # 0.98 (0.20-1.00) 10*3/uL Eosinophils # 0.10 (0.04-0.35) 10*3/uL Basophils # 0.05 (0.00-0.10) 10*3/uL Manual Slide Review Performed Immature Plt Fraction 2.1 (1.1-6.1) % Sodium 142 (137-145) mmol/L Potassium 4.2 (3.5-5.1) mmol/L Chloride 103 (98-107) mmol/L Carbon Dioxide 29 (22-30) mmol/L Anion Gap 10 mmol/L BUN 13 (9-20) mg/dL Creatinine 0.44 L (0.66-1.25) mg/dL Est GFR (CKD-EPI)AfAm >90 (>60 ml/min/1.73 sqM) Est GFR (CKD-EPI)NonAf >90 (>60 ml/min/1.73 sqM) Glucose 118 H (74-99) mg/dL Plasma Lactic Acid Wali 0.7 (0.7-2.0) mmol/L Calcium 9.1 (8.4-10.2) mg/dL Total Bilirubin 0.9 (0.2-1.3) mg/dL AST 28 (17-59) U/L ALT 25 (4-49) U/L Alkaline Phosphatase 82 (38-126) U/L Total Protein 6.7 (6.3-8.2) g/dL Albumin 3.9 (3.5-5.0) g/dL Influenza Type A (PCR) (Not Detectd) Influenza Type B (PCR) (Not Detectd) RSV (PCR) (Not Detectd) SARS-CoV-2 (PCR) (Not Detectd) 09/08/24 Range/Units 11:40 WBC (4.50-10.00) 10*3/uL RBC (4.40-5.60) 10*6/uL Hgb (13.0-17.0) g/dL Hct (39.6-50.0) % MCV (80.0-97.0) fL MCH (27.0-32.0) pg MCHC (32.0-37.0) g/dL Plt Count (140-440) 10*3/uL MPV (9.5-12.2) fL Immature Gran % (Auto) % Neutrophils % % Lymphocytes % % Monocytes % % Eosinophils % % Basophils % % Immature Gran # (0.00-0.04) 10*3/uL Neutrophils # (1.80-7.70) 10*3/uL Lymphocytes # (0.90-5.00) 10*3/uL Monocytes # (0.20-1.00) 10*3/uL Eosinophils # (0.04-0.35) 10*3/uL Basophils # (0.00-0.10) 10*3/uL Manual Slide Review Immature Plt Fraction (1.1-6.1) % Sodium (137-145) mmol/L Potassium (3.5-5.1) mmol/L Chloride (98-107) mmol/L Carbon Dioxide (22-30) mmol/L Anion Gap mmol/L BUN (9-20) mg/dL Creatinine (0.66-1.25) mg/dL Est GFR (CKD-EPI)AfAm (>60 ml/min/1.73 sqM) Est GFR (CKD-EPI)NonAf (>60 ml/min/1.73 sqM) Glucose (74-99) mg/dL Plasma Lactic Acid Wali (0.7-2.0) mmol/L Calcium (8.4-10.2) mg/dL Total Bilirubin (0.2-1.3) mg/dL AST (17-59) U/L ALT (4-49) U/L Alkaline Phosphatase (38-126) U/L Total Protein (6.3-8.2) g/dL Albumin (3.5-5.0) g/dL Influenza Type A (PCR) Not Detected (Not Detectd) Influenza Type B (PCR) Not Detected (Not Detectd) RSV (PCR) Not Detected (Not Detectd) SARS-CoV-2 (PCR) Not Detected (Not Detectd) - EKG Data -: EKG Interpreted by Pr EKG Comments: EKG performed at 11: 10 sinus rhythm with a rate of 95 ND 169 QRS 100 QT/QTc 349/401 Disposition Clinical Impression: Multifocal pneumonia, Hypoxia Disposition: ADMITTED IP TO THIS [facility] Condition: Poor Referrals: Gurjit Meraz DO [Primary Care Provider] - 1-2 days Time of Disposition: 13:50
[2024-09-08] MEDS: IPRATROPIUM-ALBUTEROL 3 ML NEB INHALATION STA (11:24)
[2024-09-08] MEDS: methylPREDNISolone SOD SUCCI 125 MG/2 ML VIAL IV STA (12:00)
[2024-09-08 12:20] LABS: Basophils # (A) 0.05 10*3/uL (0.00-0.10); Basophils % (A) 0.4 %; Eosinophils # (A) 0.10 10*3/uL (0.04-0.35); Eosinophils % (A) 0.8 %; HCT 43.8 % (39.6-50.0); HGB 14.4 g/dL (13.0-17.0); Immature Platelet Fraction 2.1 % (1.1-6.1); Lymphocytes # (A) 1.19 10*3/uL (0.90-5.00); Lymphocytes % (A) 9.7 %; MCH 31.6 pg (27.0-32.0); MCHC 32.9 g/dL (32.0-37.0); MCV 96.3 fL (80.0-97.0); Monocytes # (A) 0.98 10*3/uL (0.20-1.00); Monocytes % (A) 8.0 %; Neutrophils # (A) 9.82 10*3/uL (1.80-7.70); Neutrophils % (A) 80.4 %; Platelet Count 235 10*3/uL (140-440); RBC 4.55 10*6/uL (4.40-5.60); RDW 14.6 % (11.5-14.5); WBC 12.23 10*3/uL (4.50-10.00)
--- NOTE | 2024-09-08 12:22 | XR ---
EXAMINATION TYPE: XR chest 2V DATE OF EXAM: 09/08/2024 11:52 AM COMPARISON: Chest radiographs from11/28/2009 CLINICAL INDICATION: Male, 39 years old with history of difficulty breathing; [facility] TECHNIQUE: XR chest 2V Frontal and lateral views of the chest. FINDINGS: Lungs/Pleura: Multifocal airspace opacities. No evidence of pneumothorax or pleural effusion. Pulmonary vascularity: Unremarkable. Heart/mediastinum: Cardiomediastinal silhouette is unremarkable. Musculoskeletal: No acute osseous pathology. Other findings: None Lines/Tubes: IMPRESSION: Multifocal airspace opacities concerning for pneumonia. [facility], , 09/08/2024 12:20 PM
[2024-09-08 12:27] LABS: ALT 25 U/L (4-49); AST 28 U/L (17-59); African American GFR (CKD) >90 (>60 ml/min/1.73 sqM); Albumin 3.9 g/dL (3.5-5.0); Alkaline Phosphatase 82 U/L (38-126); Anion Gap 10 mmol/L; Blood Urea Nitrogen 13 mg/dL (9-20); Calcium 9.1 mg/dL (8.4-10.2); Carbon Dioxide 29 mmol/L (22-30); Chloride 103 mmol/L (98-107); Glucose 118 mg/dL (74-99); Non-African American GFR(CKD) >90 (>60 ml/min/1.73 sqM); Potassium 4.2 mmol/L (3.5-5.1); Sodium 142 mmol/L (137-145); Total Protein 6.7 g/dL (6.3-8.2)
[2024-09-08 12:41] LABS: RSV Not Detected (Not Detectd)
[2024-09-08] MEDS ORDERED: IPRATROPIUM-ALBUTEROL 3 ML NEB INHALATION PRN (13:46)
[2024-09-08] MEDS ORDERED: PNEUMONIA PROTOCOL UTILIZED 1 EACH MISC PO PRN (13:46)
[2024-09-08] MEDS: LACTATED RINGERS 1,000 ML IV ONE (15:37)
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
[2024-09-08] MEDS: ACETAMINOPHEN TAB 325 MG TAB PO PRN (17:15)
[2024-09-08] MEDS: AZITHROMYCIN 500 MG in SODIUM CHLORIDE 0.9% 250 ML IVPB STA (17:16)
[2024-09-08] MEDS: IPRATROPIUM-ALBUTEROL 3 ML NEB INHALATION SCH (20:00)
[2024-09-08] MEDS: methylPREDNISolone SOD SUCCI 40 MG/ML 1 ML VIAL IV SCH (21:44)
[2024-09-08] MEDS: ENOXAPARIN 40 MG/0.4 ML SYRINGE SQ SCH (21:44)
[2024-09-08] MEDS: BUDESONIDE 0.5 MG/2 ML NEBU INHALATION SCH (21:44)
[2024-09-08] MEDS: NICOTINE 21MG/24HR PATCH TRANSDERM SCH (21:45)
[2024-09-08 22:03] LABS: ABG HCO3 29 mmol/L (21-25); ABG PCO2 53 mmHg (35-45); ABG PH 7.35 (7.35-7.45); ABG TCO2 31 mmol/L (19-24); Allen Test Performed? Yes
[2024-09-08 22:04] LABS: ABG PO2 40 mmHg (83-108)
[2024-09-08] MEDS: risperiDONE 1 MG TAB PO SCH (22:15)
[2024-09-08] MEDS: LACTATED RINGERS 1,000 ML IV SCH (22:32)
--- NOTE | 2024-09-09 00:52 | P.CNPUL ---
History of Present Illness Consult date: 09/09/24 Requesting physician: Heriberto Millard Reason for consult: cough, pneumonia Chief complaint: Shortness of breath, cough History of present illness: Patient is a 39-year-old male with past medical history significant for bipolar disorder, previous incarceration, current tobacco smoker, alcohol use, and morbid obesity. Patient states that he has recently become homeless, previously living at the day center and subsequently running out of money. For the last week he has been living at the local [facility]. He is a heavy tobacco user, normally 1 to 2 pack/day smoker since the age of 23. He has been smoking partially used cigarettes from random strangers. Over the last couple days de veloping increased shortness of breath, productive cough, and myalgias. While being evaluated in the emergency department, noted to be hypoxic and placed on supplemental oxygen. Did have a fever of 100.3 F. Chest x-ray concerning for multifocal airspace opacities including a right hilar density as well as left lung consolidation. No prior images for review. Labs including a CBC with a WBC count of 12.23, hemoglobin 14.4, platelets 235. CMP unremarkable, electrolytes WDL, creatinine 0.44, glucose 118. Procalcitonin level only 0.07. NT-proBNP 663. Viral screen negative for influenza A/B, RSV, COVID. Patient previously empirically covered on azithromycin and Rocephin. Also, started on DuoNeb treatments [id number], budesonide, and IV Solu-Medrol. He is currently being evaluated on the general medical floor. Alert and oriented. Nontoxic appearance. He sitting up in bed on 4 L/min nasal cannula. Does not appear to be in respiratory distress. Endorses above-mentioned symptoms including increased shortness of breath, productive cough, and myalgias over the last couple days. Denies any chest pain, hemoptysis. Denies nausea, vomiting, diarrhea. Tolerating oral intake. Vital signs are stable. Review of Systems Constitutional: Reports fatigue, Reports fever, Denies night sweats, Denies poor appetite, Denies weight loss Ears, nose, mouth and throat: Denies headache, Denies nasal congestion, Denies nasal discharge, Denies post-nasal drip, Denies sinus pain, Denies sinus pressure, Denies sore throat Cardiovascular: Reports leg edema, Denies chest pain, Denies lightheadedness, Denies orthopnea, Denies palpitations, Denies paroxysmal nocturnal dyspnea, Denies syncope Respiratory: Reports as per HPI Gastrointestinal: Denies abdominal pain, Denies change in bowel habits, Denies constipation, Denies diarrhea, Denies hematemesis, Denies loss of appetite, Denies nausea, Denies vomiting Genitourinary: Denies dysuria Musculoskeletal: Denies limitation of motion Integumentary: Denies rash Neurological: Denies seizures, Denies syncope Psychiatric: Reports depression, Denies anxiety, Denies hallucinations, Denies suicidal ideation Past Medical History Past Medical History: No Reported History Additional Past Medical History / Comment(s): Obese History of Any Multi-Drug Resistant Organisms: None Reported Past Surgical History: Orthopedic Surgery Past Psychological History: Bipolar, Depression Smoking Status: Current some day smoker Past Alcohol Use History: Abuse, Daily, Heavy Past Drug Use History: Marijuana, Prescription Drug Abuse Medications and Allergies Home Medications Medication Instructions Recorded Confirmed Type risperiDONE [RisperDAL] 1 mg PO HS 09/08/24 09/08/24 History Allergies Allergy/AdvReac Type Severity Reaction Status Date / Time propoxyphene Allergy Intermediate Rash/Hives Verified 09/08/24 11:17 [facility] Physical Exam Vitals: Vital Signs Temp Pulse Pulse Resp BP BP Pulse Ox 09/08/24 20:09 90 09/08/24 20:00 95 09/08/24 19:50 98.3 F 103 H 19 165/74 93 L 09/08/24 17:05 100.3 F H 93 30 H 139/73 93 L 09/08/24 15:05 92 25 H 151/85 93 L 09/08/24 14:50 93 24 139/64 95 09/08/24 12:04 94 26 H 143/78 93 L 09/08/24 11:42 84 09/08/24 11:29 72 09/08/24 10:25 23 09/08/24 10:21 98.9 F 108 H 24 145/79 91 L Intake and Output 09/08/24 09/08/24 09/09/24 14:59 22:59 06:59 Other: Weight 195.045 kg 195.045 kg GENERAL EXAM: Alert, 39-year-old morbidly obese male, comfortable in no apparent distress. HEAD: Normocephalic and atraumatic EYES: Normal reaction of pupils, equal size. NOSE: Clear with pink turbinates. THROAT: No erythema or exudates. NECK: No masses, no JVD. CHEST: No chest wall deformity. LUNGS: Equal air entry with scattered rhonchi and wheezing bilaterally. On 4 L/min nasal cannula. No conversational dyspnea or accessory muscle use.. CVS: S1 and S2 normal with no audible murmur, regular rhythm. No extra heart sounds ABDOMEN: Obese abdomen, active bowel sounds, no hepatosplenomegaly, no guarding or rigidity. SPINE: No scoliosis or deformity SKIN: No rashes CENTRAL NERVOUS SYSTEM: No focal deficits, tone is normal in all 4 extremities. EXTREMITIES: There is no peripheral edema, clubbing, or cyanosis. Peripheral pulses are intact. Results - Laboratory Findings CBC and BMP: 09/09/24 03:14 09/09/24 03:14 ABG ABG pH 7.35 (7.35-7.45) 09/08/24 21:47 ABG pCO2 53 mmHg (35-45) H 09/08/24 21:47 ABG pO2 40 mmHg (83-108) L* 09/08/24 21:47 ABG O2 Saturation 80.1 % (94-97) L 09/08/24 21:47 Abnormal lab findings: Abnormal Labs 09/08/24 09/08/24 09/08/24 11:40 11:40 21:47 WBC 12.23 H Immature Gran # 0.09 H Neutrophils # 9.82 H ABG pCO2 53 H ABG pO2 40 L* ABG HCO3 29 H ABG Total CO2 31 H ABG O2 Saturation 80.1 L Creatinine 0.44 L Glucose 118 H - Diagnostic Findings Chest x-ray: image reviewed Assessment and Plan Assessment: Community-acquired pneumonia, multifocal, with right hilar consolidation, as well as, left lung consolidation. Acute hypoxemic respiratory failure, on 4 L/min nasal cannula, secondary to ab ove Current ongoing tobacco dependence, approximately 20 pack years History of alcohol abuse History of incarceration Homelessness History of bipolar disorder Morbid obesity, with a BMI 56.7 kg/m Plan: Patient medications, labs, chest x-ray reviewed Repeat chest x-ray in the morning and follow to resolution Continue supplemental oxygen to maintain oxygen saturation of 92% or greater Continue empiric antibiotics Sputum culture pending Blood cultures pending Urine Legionella antigen pending Procalcitonin level only 0.07 Smoking cessation counseling performed Nicotine patch offered Previously started on combination of DuoNebs [id number], budesonide inhalation, and IV Solu-Medrol We will continue to follow I have personally seen and examined the patient, performed the documentation and the assessment and plan as written. Number of minutes spent on the visit:20 This is a joint evaluation that was done along with the nurse practitioner. This evaluation was done and 35 minutes. In summary, this is a 39-year-old male patient who has lived in a penitentiary. He is homeless. He is known to have bipolar disorder. He is also morbidly obese with a BMI of 56.7. 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 Is coming in with cough and congestion and increased bronchospasm wheezing and chest x-ray shows bilateral pulmonary infiltrates and consolidations consistent with pneumonia. Repeat chest x-ray was done on 09/09/2024 and the patient has similar multifocal airspace disease. The patient was started on broad-spectrum antibiotics and the patient is currently on a combination of Rocephin and Zithromax. The patient is also on IV Solu-Medrol to be transition to oral prednisone as of tomorrow. Remains on DuoNeb the regiment [id number]. The white cell count from today is at 9.5 with a heme of 13.9. Blood gas were noted. BUN is 15 with a creatinine of 0.7. Procalcitonin level is 0.06. The viral screen was negative. Awake and alert and communicating. Will continue same treatment for now. Will contact a sputum sample. This will be sent for cultures. Time with Patient: Greater than 30
[2024-09-09 03:43] LABS: Basophils # (A) 0.02 10*3/uL (0.00-0.10); Basophils % (A) 0.2 %; Eosinophils # (A) 0.00 10*3/uL (0.04-0.35); Eosinophils % (A) 0.0 %; HCT 44.6 % (39.6-50.0); HGB 13.9 g/dL (13.0-17.0); Lymphocytes # (A) 0.78 10*3/uL (0.90-5.00); Lymphocytes % (A) 8.1 %; MCH 30.8 pg (27.0-32.0); MCHC 31.2 g/dL (32.0-37.0); MCV 98.9 fL (80.0-97.0); Monocytes # (A) 0.31 10*3/uL (0.20-1.00); Monocytes % (A) 3.2 %; Neutrophils # (A) 8.37 10*3/uL (1.80-7.70); Neutrophils % (A) 87.4 %; Platelet Count 244 10*3/uL (140-440); RBC 4.51 10*6/uL (4.40-5.60); RDW 14.5 % (11.5-14.5); WBC 9.59 10*3/uL (4.50-10.00)
[2024-09-09 04:02] LABS: African American GFR (CKD) >90 (>60 ml/min/1.73 sqM); Anion Gap 8 mmol/L; Blood Urea Nitrogen 13 mg/dL (9-20); Calcium 9.0 mg/dL (8.4-10.2); Carbon Dioxide 31 mmol/L (22-30); Chloride 101 mmol/L (98-107); Glucose 172 mg/dL (74-99); Non-African American GFR(CKD) >90 (>60 ml/min/1.73 sqM); Potassium 4.9 mmol/L (3.5-5.1); Sodium 140 mmol/L (137-145)
--- NOTE | 2024-09-09 07:36 | XR ---
EXAMINATION TYPE: XR chest 2V DATE OF EXAM: 09/09/2024 7:15 AM COMPARISON: Chest radiographs from; 09/08/2024 CLINICAL INDICATION: Male, 39 years old with history of pneumonia; [facility] TECHNIQUE: XR chest 2V Frontal and lateral views of the chest. FINDINGS: Lungs/Pleura: Similar multifocal airspace opacities. No evidence of pneumothorax or pleural effusion. Pulmonary vascularity: Unremarkable. Heart/mediastinum: Cardiomediastinal silhouette is unremarkable. Musculoskeletal: No acute osseous pathology. IMPRESSION: Similar multifocal airspace opacities. [facility], , 09/09/2024 7:34 AM
[2024-09-09] MEDS: FAMOTIDINE 20 MG TAB PO SCH (08:48)
[2024-09-09] MEDS ORDERED: predniSONE 20 MG TAB PO SCH (09:00)
[2024-09-09] MEDS: FUROSEMIDE 10 MG/ML 4 ML VIAL IV SCH (11:06)
[2024-09-09] MEDS: AZITHROMYCIN 500 MG in SODIUM CHLORIDE 0.9% 250 ML IVPB SCH (13:53)
--- NOTE | 2024-09-09 14:13 | P.PN ---
Subjective Progress Note Date: 09/09/24 The overnight, the patient had some worsening shortness of breath and a ABG was ordered. This morning the patient says he feels better and is standing up out of bed. Denies any new symptoms or pain. Objective - Vital Signs Vital signs: Vital Signs Temp 98.4 F 09/09/24 07:17 Pulse 87 09/09/24 12:19 Resp 19 09/09/24 07:17 BP 129/71 09/09/24 07:17 Pulse Ox 91 L 09/09/24 09:15 FiO2 Intake & Output 09/08/24 09/09/24 09/09/24 18:59 06:59 18:59 Output Total 650 Balance -650 Weight 195.045 kg 195.045 kg Output: Urine 650 Other: # Voids 1 3 - Exam General: non toxic, no distress, appears at stated age Derm: warm, dry Head: atraumatic, normocephalic, symmetric Mouth: no lip lesion, dry mucous membranes Cardiovascular: Regular rate and rhythm. Trace bilateral lower extremity pitting edema. No JVD. Lungs: no accessory muscle use. Wheezing bilaterally especially on expiration. Abdominal: Obese abdomen. Nondistended. Nontender to palpation all 4 quadrants. Ext: no gross muscle atrophy, Lymphedema to lower extremities bilaterally, no contractures Neuro: no focal neuro deficits Psych: Alert and oriented - Labs CBC & Chem 7: 09/09/24 03:14 09/09/24 03:14 Labs: Abnormal Lab Results - Last 24 Hours (Table) 09/08/24 09/09/24 09/09/24 Range/Units 21:47 03:14 03:14 MCV 98.9 H (80.0-97.0) fL MCHC 31.2 L (32.0-37.0) g/dL MPV 9.0 L (9.5-12.2) fL Immature Gran # 0.11 H (0.00-0.04) 10*3/uL Neutrophils # 8.37 H (1.80-7.70) 10*3/uL Lymphocytes # 0.78 L (0.90-5.00) 10*3/uL Eosinophils # 0.00 L (0.04-0.35) 10*3/uL ABG pCO2 53 H (35-45) mmHg ABG pO2 40 L* (83-108) mmHg ABG HCO3 29 H (21-25) mmol/L ABG Total CO2 31 H (19-24) mmol/L ABG O2 Saturation 80.1 L (94-97) % Carbon Dioxide 31 H (22-30) mmol/L Creatinine 0.37 L (0.66-1.25) mg/dL Glucose 172 H (74-99) mg/dL C-Reactive Protein (0.00-0.80) mg/dL 09/09/24 Range/Units 03:14 MCV (80.0-97.0) fL MCHC (32.0-37.0) g/dL MPV (9.5-12.2) fL Immature Gran # (0.00-0.04) 10*3/uL Neutrophils # (1.80-7.70) 10*3/uL Lymphocytes # (0.90-5.00) 10*3/uL Eosinophils # (0.04-0.35) 10*3/uL ABG pCO2 (35-45) mmHg ABG pO2 (83-108) mmHg ABG HCO3 (21-25) mmol/L ABG Total CO2 (19-24) mmol/L ABG O2 Saturation (94-97) % Carbon Dioxide (22-30) mmol/L Creatinine (0.66-1.25) mg/dL Glucose (74-99) mg/dL C-Reactive Protein 10.50 H (0.00-0.80) mg/dL Assessment and Plan Assessment: Relevant labs reviewed: WBC: 9.59, Hgb: 13.9, ABG: Ph 7.35, pCO2: 53, PO2: 40, HCO3: 29, total CO2: 31, O2 saturation: 80.1 Na: 140, K: 4.9, creatinine: 0.37, glucose: 172, procalcitonin: 0.06 Repeat chest XR independently interpreted appears similar to yesterday. Was interpreted as similar multifocal airspace opacities. Assessment/Plan: 1. Acute hypoxic respiratory failure # Likely secondary to community-acquired pneumonia # Patient meets sepsis criteria # Possible underlying COPD exacerbation given patient's smoking history # Per chart review patient had an echocardiogram on 11/06/2022 which indicated normal left ventricular size and systolic function with an LVEF of 55 to 65% and global hypokinesis of the right ventricle with moderate right ventricular dilation. - Viral respiratory panel negative - On 3L nasal cannula, attempt to wean down - -Solu-Medrol 40 mg every 12 hours - DuoNebs around the clock - Pulmonology added Pulmicort inhaler and nicotine patch - Sputum and blood cultures pending - Continue empiric ceftriaxone 2 g and azithromycin 500 mg every day - Lasix 40mg BID ordered - Patient's BNP is elevated at 663 - echocardiogram pending 2. History of Bipolar 1 disorder - Continue home risperidone DVT prophylaxis: Lovenox 40 SQ daily CODE STATUS: Full Code Xavi Solares MD PGY-1 TY Dictation was produced using [employer] dictation software. please excuse any grammatical, word or spelling errors. I saw and evaluated the patient during the bustillos and critical portions of this encounter, and discussed the case in detail with the resident author of this note, I agree with the Assessment and Plan, and my changes, if any, are h ighlighted in blue.
[2024-09-10 06:41] LABS: Basophils # (A) 0.03 10*3/uL (0.00-0.10); Basophils % (A) 0.4 %; Eosinophils # (A) 0.05 10*3/uL (0.04-0.35); Eosinophils % (A) 0.6 %; HCT 43.2 % (39.6-50.0); HGB 13.0 g/dL (13.0-17.0); Lymphocytes # (A) 2.03 10*3/uL (0.90-5.00); Lymphocytes % (A) 24.8 %; MCH 30.2 pg (27.0-32.0); MCHC 30.1 g/dL (32.0-37.0); MCV 100.5 fL (80.0-97.0); Monocytes # (A) 0.84 10*3/uL (0.20-1.00); Monocytes % (A) 10.3 %; Neutrophils # (A) 5.15 10*3/uL (1.80-7.70); Neutrophils % (A) 62.9 %; Platelet Count 267 10*3/uL (140-440); RBC 4.30 10*6/uL (4.40-5.60); RDW 14.6 % (11.5-14.5); WBC 8.18 10*3/uL (4.50-10.00)
[2024-09-10 06:51] LABS: African American GFR (CKD) >90 (>60 ml/min/1.73 sqM); Anion Gap 6 mmol/L; Blood Urea Nitrogen 19 mg/dL (9-20); Calcium 9.1 mg/dL (8.4-10.2); Carbon Dioxide 37 mmol/L (22-30); Chloride 98 mmol/L (98-107); Glucose 116 mg/dL (74-99); Non-African American GFR(CKD) >90 (>60 ml/min/1.73 sqM); Potassium 4.4 mmol/L (3.5-5.1); Sodium 141 mmol/L (137-145)
[2024-09-10] MEDS: predniSONE 20 MG TAB PO SCH (10:10)
--- NOTE | 2024-09-10 12:30 | CA ---
Transthoracic Echo Report Name: Vinny Aragon Age: 39 Gender: M : 1985 Exam Date: 09/09/2024 16:10 Exam Location: [facility] Ht (in): 73 Wt (lb): 430 Ordering Physician: Xavi Solares MD Attending/Referring Phys: Dcs Engineer Laura Redmond RDCS Procedure CPT: Indications: elevated bnp Cardiac Hx: Technical Quality: Fair Contrast 1: Definity Total Dose (mL): 2 Contrast 2: Total Dose (mL): MEASUREMENTS (Male / Female) Normal Values 2D ECHO LV Diastolic Diameter PLAX 6.0 cm 4.2 - 5.9 / 3.9 - 5.3 cm LV Systolic Diameter PLAX 3.3 cm IVS Diastolic Thickness 1.0 cm 0.6 - 1.0 / 0.6 - 0.9 cm LVPW Diastolic Thickness 1.0 cm 0.6 - 1.0 / 0.6 - 0.9 cm LV Relative Wall Thickness 0.3 RV Internal Dim ED PLAX 4.8 cm LA Systolic Diameter LX 5.0 cm 3.0 - 4.0 / 2.7 - 3.8 cm LA Volume 50.9 cm??? 18 - 58 / 22 - 52 cm??? LA Volume Index 15.5 cm???/m??? 16 - 28 cm???/m??? M-MODE Aortic Root Diameter MM 3.3 cm LA Systolic Diameter MM 4.6 cm LA Ao Ratio MM 1.4 AV Cusp Separation MM 2.4 cm DOPPLER MV Area PHT 2.8 cm??? Mitral E Point Velocity 82.7 cm/s Mitral A Point Velocity 64.8 cm/s Mitral E to A Ratio 1.3 MV Deceleration Time 270.1 ms TR Peak Velocity 262.1 cm/s TR Peak Gradient 31.9 mmHg Right Atrial Pressure 10.0 mmHg Pulmonary Artery Systolic Pressu 37.5 mmHg Right Ventricular Systolic Press 37.5 mmHg FINDINGS Left Ventricle Left ventricular ejection fraction is estimated at 55-60 %. Mildly increased left ventricular diastolic diameter. Normal left ventricular systolic function with no obvious regional wall motion abnormalities. Left ventricular cavity size normal. Right Ventricle Mild right ventricular dilatation. Mild pulmonary hypertension. Right Atrium Mild right atrial dilatation. Left Atrium Moderately increased left atrial diameter. Mitral Valve Structurally normal mitral valve. Mild mitral regurgitation. No mitral stenosis. Aortic Valve Trileaflet aortic valve. No aortic valve stenosis or regurgitation. Tricuspid Valve Structurally normal tricuspid valve. Mild tricuspid regurgitation. No tricuspid stenosis. Pulmonic Valve Structurally normal pulmonic valve. No pulmonic stenosis. Pericardium No pericardial or pleural effusion. Aorta Normal size aortic root and proximal ascending aorta. CONCLUSIONS Normal LV systolic function Previewed by: Dr. Alejo Michel MD (Electronically Signed) Final Date: 10 September 2024 12:29
--- NOTE | 2024-09-10 14:48 | P.PN ---
Subjective Progress Note Date: 09/10/24 Patient is a 39-year-old male with past medical history significant for bipolar disorder, previous incarceration, current tobacco smoker, alcohol use, and morbid obesity. Patient states that he has recently become homeless, previously living at the day center and subsequently running out of money. For the last week he has been living at the local homeless senior care. He is a heavy tobacco user, normally 1 to 2 pack/day smoker since the age of 23. He has been smoking partially used cigarettes from random strangers. Over the last couple days developing increased shortness of breath, productive cough, and myalgias. While being evaluated in the emergency department, noted to be hypoxic and placed on supplemental oxygen. Did have a fever of 100.3 F. Chest x-ray concerning for multifocal airspace opacities including a right hilar density as well as left lung consolidation. No prior images for review. Labs including a CBC with a WBC count of 12.23, hemoglobin 14.4, platelets 235. CMP unremarkable, electrolytes WDL, creatinine 0.44, glucose 118. Procalcitonin level only 0.07. NT-proBNP 663. Viral screen negative for influenza A/B, RSV, COVID. Patient previously empirically covered on azithromycin and Rocephin. Also, started on DuoNeb treatments [id number], budesonide, and IV Solu-Medrol. He is currently being evaluated on the general medical floor. Alert and oriented. Nontoxic appearance. He sitting up in bed on 4 L/min nasal cannula. Does not appear to be in respiratory distress. Endorses above-mentioned symptoms including increased shortness of breath, productive cough, and myalgias over the last couple days. Denies any chest pain, hemoptysis. Denies nausea, vomiting, diarrhea. Tolerating oral intake. Vital signs are stable. On today's evaluation of 09/10/2024, the patient remains bronchospastic congested and wheezy. Sputum sample has been collected and results are still pending for now. The blood culture is has been negative. Meanwhile, the patient is a white cell count of 8 with a hemoglobin 13 and a platelet count of 267. The procalcitonin level is 0.07. Electrolytes are all within normal limits with a BUN of 19 and a creatinine of 0.5. Viral screen has been negative. Legionella urine antigen has been negative. The patient remains on a combination of Rocephin and Zithromax and prednisone burst taper and currently is on 40 mg. He has been on DuoNeb treatments [id number]. Oxygenation remains borderline on 2 L of oxygen by nasal cannula with a pulse ox of 94%. No altered mentation. No chest pain. He reports clinical improvement. Objective - Vital Signs Vital signs: Vital Signs Temp 97.6 F 09/10/24 07:47 Pulse 83 09/10/24 09:39 Resp 19 09/10/24 07:47 BP 117/75 09/10/24 07:47 Pulse Ox 97 09/10/24 09:23 FiO2 Intake & Output 09/09/24 09/10/24 09/10/24 18:59 06:59 18:59 Intake Total 1240 Output Total 900 Balance 340 Intake: Intake, IV Titration 300 Amount Azithromycin 500 mg In 250 Sodium Chloride 0.9% 250 ml @ 250 mls/hr IVPB DAILY@1400 [facility] Rx#: [id number] cefTRIAXone 2 gm In 50 Sodium Chloride 0.9% 50 ml @ 100 mls/hr IVPB Q24HR@1200 [facility] Rx#: [id number] Oral 940 Output: Urine 900 Other: Voiding Method Toilet # Voids 2 2 2 # Bowel Movements 1 - Exam GENERAL EXAM: Alert, 39-year-old morbidly obese male, comfortable in no apparent distress. HEAD: Normocephalic and atraumatic EYES: Normal reaction of pupils, equal size. NOSE: Clear with pink turbinates. THROAT: No erythema or exudates. NECK: No masses, no JVD. CHEST: No chest wall deformity. LUNGS: Equal air entry with scattered rhonchi and wheezing bilaterally. On 4 L/min nasal cannula. No conversational dyspnea or accessory muscle use.. CVS: S1 and S2 normal with no audible murmur, regular rhythm. No extra heart sounds ABDOMEN: Obese abdomen, active bowel sounds, no hepatosplenomegaly, no guarding or rigidity. SPINE: No scoliosis or deformity SKIN: No rashes CENTRAL NERVOUS SYSTEM: No focal deficits, tone is normal in all 4 extremities. EXTREMITIES: There is no peripheral edema, clubbing, or cyanosis. Peripheral pulses are intact. - Labs CBC & Chem 7: 09/10/24 05:46 09/10/24 05:46 Labs: Abnormal Lab Results - Last 24 Hours (Table) 09/10/24 09/10/24 Range/Units 05:46 05:46 RBC 4.30 L (4.40-5.60) 10*6/uL MCV 100.5 H (80.0-97.0) fL MCHC 30.1 L (32.0-37.0) g/dL RDW 14.6 H (11.5-14.5) % MPV 9.4 L (9.5-12.2) fL Immature Gran # 0.08 H (0.00-0.04) 10*3/uL Carbon Dioxide 37 H (22-30) mmol/L Creatinine 0.55 L (0.66-1.25) mg/dL Glucose 116 H (74-99) mg/dL Microbiology - Last 24 Hours (Table) 09/08/24 22:53 Gram Stain - Preliminary Sputum 09/08/24 14:45 Blood Culture - Preliminary Blood Assessment and Plan Assessment: Community-acquired pneumonia, multifocal, with right hilar consolidation, as well as, left lung consolidation. Viral screen negative. Legionella urine antigen was negative. Sputum culture and blood cultures still pending for now and the patient is currently on a combination of Rocephin and Zithromax. Acute exacerbation of COPD Acute hypoxemic respiratory failure, on 2 L of oxygen by nasal cannula Current ongoing tobacco dependence, approximately 20 pack years History of alcohol abuse History of incarceration Homelessness History of bipolar disorder Morbid obesity, with a BMI 56.7 kg/m Plan: Continue supplemental oxygen to maintain oxygen saturation of 92% or greater, currently on 2 L Continue empiric antibiotics, currently on a combination of Rocephin and Zit hromax Sputum culture pending Blood cultures pending Urine Legionella antigen was negative Viral screen was negative Continue prednisone burst taper Continue DuoNeb nebulized symptoms [id number] Continue Symbicort Procalcitonin level only 0.07 Smoking cessation counseling performed Nicotine patch offered Limited improvement over the past 24 hours. Will obtain a follow-up chest x-ray in AM.
--- NOTE | 2024-09-10 17:24 | P.PN ---
Subjective Progress Note Date: 09/10/24 The patient reports feeling all right today overall. Does mention frustration with increased shortness of breath when getting up and walking around even for short distances. However denies shortness of breath while sitting at rest. Objective - Vital Signs Vital signs: Vital Signs Temp 98.3 F 09/10/24 15:29 Pulse 81 09/10/24 15:29 Resp 17 09/10/24 15:29 BP 124/84 09/10/24 15:29 Pulse Ox 94 L 09/10/24 15:29 FiO2 Intake & Output 09/09/24 09/10/24 09/10/24 18:59 06:59 18:59 Intake Total 1240 Output Total 900 Balance 340 Intake: Intake, IV Titration 300 Amount Azithromycin 500 mg In 250 Sodium Chloride 0.9% 250 ml @ 250 mls/hr IVPB DAILY@1400 [facility] Rx#: [id number] cefTRIAXone 2 gm In 50 Sodium Chloride 0.9% 50 ml @ 100 mls/hr IVPB Q24HR@1200 [facility] Rx#: [id number] Oral 940 Output: Urine 900 Other: Voiding Method Toilet # Voids 2 2 3 # Bowel Movements 1 - Exam General: non toxic, no distress, appears at stated age Derm: warm, dry Head: atraumatic, normocephalic, symmetric Mouth: no lip lesion, dry mucous membranes Cardiovascular: Regular rate and rhythm. Trace bilateral lower extremity pitting edema. No JVD. Lungs: no accessory muscle use. Wheezing bilaterally especially on expiration. Abdominal: Obese abdomen. Nondistended. Nontender to palpation all 4 quadrants. Ext: no gross muscle atrophy, Lymphedema to lower extremities bilaterally, no contractures Neuro: no focal neuro deficits Psych: Alert and oriented - Labs CBC & Chem 7: 09/10/24 05:46 09/10/24 05:46 Labs: Abnormal Lab Results - Last 24 Hours (Table) 09/10/24 09/10/24 Range/Units 05:46 05:46 RBC 4.30 L (4.40-5.60) 10*6/uL MCV 100.5 H (80.0-97.0) fL MCHC 30.1 L (32.0-37.0) g/dL RDW 14.6 H (11.5-14.5) % MPV 9.4 L (9.5-12.2) fL Immature Gran # 0.08 H (0.00-0.04) 10*3/uL Carbon Dioxide 37 H (22-30) mmol/L Creatinine 0.55 L (0.66-1.25) mg/dL Glucose 116 H (74-99) mg/dL Microbiology - Last 24 Hours (Table) 09/08/24 22:53 Gram Stain - Preliminary Sputum Sputum Culture - Preliminary 09/08/24 14:45 Blood Culture - Preliminary Blood Assessment and Plan Assessment: Relevant labs reviewed: WBC: 8.18, Hgb: 13.0, Na: 141, K: 4.4, creatinine: 0.55, glucose: 116 Assessment/Plan: 1. Acute hypoxic respiratory failure secondary to community acquired pneumonia # Sepsis secondary to above # Possible underlying COPD exacerbation versus acute heart failure exacerbation - Per chart review patient had an echocardiogram on 11/06/2022 which indicated normal left ventricular size and systolic function with an LVEF of 55 to 65% and global hypokinesis of the right ventricle with moderate right ventricular dilation. - Echocardiogram today shows LVEF at 55 to 60% - Viral respiratory panel negative - On 2L nasal cannula, attempt to wean down - Continue prednisone 40 mg p.o. daily - DuoNebs around the clock - Continue Pulmicort inhaler and nicotine patch - Blood cultures show no growth after 24 hours - Sputum culture show moderate polymorphonuclear leukocytes, few epithelial cells, few gram-positive cocci, rare yeast, rare gram-negative bacilli - Continue empiric ceftriaxone 2 g (day 3 of 5) - 3-day course of azithromycin has been completed - Lasix discontinued - Pulmonology ordered repeat chest x-ray in a.m. 2. History of Bipolar 1 disorder - Continue home risperidone DVT prophylaxis: Lovenox 40 SQ daily CODE STATUS: Full Code Xavi Solares MD PGY-1 TY Dictation was produced using [employer] dictation software. please excuse any grammatical, word or spelling errors. I have seen and evaluated the patient today. Discussed with the resident and agree with the residents finding and plan as documented in the resident's note. Changes highlighted in blue font.
[2024-09-11 06:17] LABS: Basophils # (A) 0.03 10*3/uL (0.00-0.10); Basophils % (A) 0.4 %; Eosinophils # (A) 0.05 10*3/uL (0.04-0.35); Eosinophils % (A) 0.6 %; HCT 42.3 % (39.6-50.0); HGB 13.1 g/dL (13.0-17.0); Lymphocytes # (A) 2.84 10*3/uL (0.90-5.00); Lymphocytes % (A) 34.1 %; MCH 30.5 pg (27.0-32.0); MCHC 31.0 g/dL (32.0-37.0); MCV 98.4 fL (80.0-97.0); Monocytes # (A) 0.66 10*3/uL (0.20-1.00); Monocytes % (A) 7.9 %; Neutrophils # (A) 4.69 10*3/uL (1.80-7.70); Neutrophils % (A) 56.2 %; Platelet Count 245 10*3/uL (140-440); RBC 4.30 10*6/uL (4.40-5.60); RDW 14.4 % (11.5-14.5); WBC 8.34 10*3/uL (4.50-10.00)
[2024-09-11 06:46] LABS: African American GFR (CKD) >90 (>60 ml/min/1.73 sqM); Anion Gap 3 mmol/L; Blood Urea Nitrogen 17 mg/dL (9-20); Calcium 9.0 mg/dL (8.4-10.2); Carbon Dioxide 36 mmol/L (22-30); Chloride 101 mmol/L (98-107); Glucose 115 mg/dL (74-99); Non-African American GFR(CKD) >90 (>60 ml/min/1.73 sqM); Potassium 4.3 mmol/L (3.5-5.1); Sodium 140 mmol/L (137-145)
--- NOTE | 2024-09-11 07:32 | XR ---
EXAMINATION TYPE: XR chest 1V DATE OF EXAM: 09/11/2024 6:43 AM COMPARISON: Chest radiograph from one day prior. CLINICAL INDICATION: Male, 39 years old with history of Follow-up pneumonia; [facility] TECHNIQUE: XR chest 1V Frontal view of the chest. FINDINGS: Lungs/Pleura: Stable exam subtle airspace disease process isn't thought to be present bilaterally The re is no evidence of pleural effusion, focal consolidation, or pneumothorax. Pulmonary vascularity: Unremarkable. Heart/mediastinum: Cardiomediastinal silhouette is unremarkable. Musculoskeletal: No acute osseous pathology. IMPRESSION: Stable exam with subtle multifocal airspace opacities [facility], , 09/11/2024 7:30 AM
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
[2024-09-11 14:53] VITALS: BP 151/88; PULSE 81; RESP 17; TEMP 98.7
--- NOTE | 2024-09-11 21:03 | P.PN ---
Subjective Progress Note Date: 09/11/24 Patient is a 39-year-old male with past medical history significant for bipolar disorder, previous incarceration, current tobacco smoker, alcohol use, and morbid obesity. Patient states that he has recently become homeless, previously living at the day center and subsequently running out of money. For the last week he has been living at the local homeless long term. He is a heavy tobacco user, normally 1 to 2 pack/day smoker since the age of 23. He has been smoking partially used cigarettes from random strangers. Over the last couple days developing increased shortness of breath, productive cough, and myalgias. While being evaluated in the emergency department, noted to be hypoxic and placed on supplemental oxygen. Did have a fever of 100.3 F. Chest x-ray concerning for multifocal airspace opacities including a right hilar density as well as left lung consolidation. No prior images for review. Labs including a CBC with a WBC count of 12.23, hemoglobin 14.4, platelets 235. CMP unremarkable, electrolytes WDL, creatinine 0.44, glucose 118. Procalcitonin level only 0.07. NT-proBNP 663. Viral screen negative for influenza A/B, RSV, COVID. Patient previously empirically covered on azithromycin and Rocephin. Also, started on DuoNeb treatments [id number], budesonide, and IV Solu-Medrol. He is currently being evaluated on the general medical floor. Alert and oriented. Nontoxic appearance. He sitting up in bed on 4 L/min nasal cannula. Does not appear to be in respiratory distress. Endorses above-mentioned symptoms including increased shortness of breath, productive cough, and myalgias over the last couple days. Denies any chest pain, hemoptysis. Denies nausea, vomiting, diarrhea. Tolerating oral intake. Vital signs are stable. On today's evaluation of 09/10/2024, the patient remains bronchospastic congested and wheezy. Sputum sample has been collected and results are still pending for now. The blood culture is has been negative. Meanwhile, the patient is a white cell count of 8 with a hemoglobin 13 and a platelet count of 267. The procalcitonin level is 0.07. Electrolytes are all within normal limits with a BUN of 19 and a creatinine of 0.5. Viral screen has been negative. Legionella urine antigen has been negative. The patient remains on a combination of Rocephin and Zithromax and prednisone burst taper and currently is on 40 mg. He has been on DuoNeb treatments [id number]. Oxygenation remains borderline on 2 L of oxygen by nasal cannula with a pulse ox of 94%. No altered mentation. No chest pain. He reports clinical improvement. 09/11/2024, still congested and continues to have some shortness of breath. Nevertheless, clinically much improved. Repeat chest x-ray shows some limited improvement in the multifocal airspace disease on the left. The white cell count of 3.3 with a hemoglobin of 13 and a platelet count of 245. BUN is 17 with a creatinine of 0.5. Sodium is at 140. Sputum culture has been negative. Blood cultures been negative. The patient is currently on room air oxygen with a pulse ox of 92%. Objective - Vital Signs Vital signs: Vital Signs Temp 97.9 F 09/11/24 07:47 Pulse 80 09/11/24 09:17 Resp 15 09/11/24 07:47 BP 140/81 09/11/24 07:47 Pulse Ox 92 L 09/11/24 07:47 FiO2 Intake & Output 09/10/24 09/11/24 09/11/24 18:59 06:59 18:59 Output Total 600 Balance -600 Output: Urine 600 Other: Voiding Method Toilet Urinal # Voids 3 4 - Exam GENERAL EXAM: Alert, 39-year-old morbidly obese male, comfortable in no apparent distress. HEAD: Normocephalic and atraumatic EYES: Normal reaction of pupils, equal size. NOSE: Clear with pink turbinates. THROAT: No erythema or exudates. NECK: No masses, no JVD. CHEST: No chest wall deformity. LUNGS: Equal air entry with scattered rhonchi and wheezing bilaterally. On 4 L/min nasal cannula. No conversational dyspnea or accessory muscle use.. CVS: S1 and S2 normal with no audible murmur, regular rhythm. No extra heart sounds ABDOMEN: Obese abdomen, active bowel sounds, no hepatosplenomegaly, no guarding or rigidity. SPINE: No scoliosis or deformity SKIN: No rashes CENTRAL NERVOUS SYSTEM: No focal deficits, tone is normal in all 4 extremities. EXTREMITIES: There is no peripheral edema, clubbing, or cyanosis. Peripheral pulses are intact. - Labs CBC & Chem 7: 09/11/24 05:55 09/11/24 05:55 Labs: Abnormal Lab Results - Last 24 Hours (Table) 09/11/24 09/11/24 Range/Units 05:55 05:55 RBC 4.30 L (4.40-5.60) 10*6/uL MCV 98.4 H (80.0-97.0) fL MCHC 31.0 L (32.0-37.0) g/dL Immature Gran # 0.07 H (0.00-0.04) 10*3/uL Carbon Dioxide 36 H (22-30) mmol/L Creatinine 0.53 L (0.66-1.25) mg/dL Glucose 115 H (74-99) mg/dL Microbiology - Last 24 Hours (Table) 09/08/24 22:53 Gram Stain - Final Sputum Sputum Culture - Final 09/08/24 14:45 Blood Culture - Preliminary Blood Assessment and Plan Assessment: Community-acquired pneumonia, multifocal, with right hilar consolidation, as well as, left lung consolidation. Viral screen negative. Legionella urine antigen was negative. Sputum and blood cultures negative. Chest x-ray shows l imited improvement in the left lung consolidation. Acute exacerbation of COPD, improving Acute hypoxemic respiratory failure, on room air oxygen Current ongoing tobacco dependence, approximately 20 pack years History of alcohol abuse History of incarceration Homelessness History of bipolar disorder Morbid obesity, with a BMI 56.7 kg/m Plan: Continue supplemental oxygen to maintain oxygen saturation of 92% or greater, currently on room air oxygen Continue empiric antibiotics, currently on a combination of Rocephin and Zithromax for another 24 hours Sputum culture negative Blood cultures negative Urine Legionella antigen was negative Viral screen was negative Continue prednisone burst taper Continue DuoNeb nebulized symptoms [id number] Continue Symbicort Procalcitonin level only 0.07 Smoking cessation counseling performed Nicotine patch offered Ideally, the patient would benefit from another 24 hours of in hospital IV antibiotics. Possible discharge within the next 24 hours.
== END 2024-09-11 14:36 | disposition other institution (70) | DRG 193 ==
LOC: EC 10:12 → 4SSUR 13:46 → EEVIPCON 13:46 → 4SSUR 16:53
PROVIDERS: ADMIT Student in an Organized Health Care Education/Training Program; ATTEND Student in an Organized Health Care Education/Training Program
PROC: 3E0F7SF Introduction of Other Gas into Respiratory Tract, Via Natural or Artificial Opening (ICD-10-PCS; principal; 2024-09-08)
DX: J18.9 Pneumonia, unspecified organism (principal); J96.01 Acute respiratory failure with hypoxia; I27.20 Pulmonary hypertension, unspecified; Z68.43 Body mass index [BMI] 50.0-59.9, adult; Z59.01 Sheltered homelessness; Z11.52 Encounter for screening for COVID-19; J44.0 Chronic obstructive pulmonary disease with (acute) lower respiratory infection; F31.9 Bipolar disorder, unspecified; F12.10 Cannabis abuse, uncomplicated; J44.1 Chronic obstructive pulmonary disease with (acute) exacerbation; E66.01 Morbid (severe) obesity due to excess calories; I49.1 Atrial premature depolarization; F17.210 Nicotine dependence, cigarettes, uncomplicated; Z88.8 Allergy status to other drugs, medicaments and biological substances; Z71.6 Tobacco abuse counseling
CPT/HCPCS: 36415; 36600; 71045; 71046; 80048; 80053; 82805; 83605; 83880; 84145; 85025; 86140; 87040; 87070; 87205; 87449; 87636; 93005; 93306; 94640; 94760; 96365; 96366; 96367; 96375; 99285

== ENCOUNTER 2024-09-23 02:14 | Emergency (ER) | payer MEDICARE, OTHER ==
--- NOTE | 2024-09-23 03:28 | ED ---
General Adult HPI - General Source: patient, EMS, RN notes reviewed Mode of arrival: EMS Limitations: no limitations <Meri Gonzalez - Last Filed: 09/25/24 22:29> <Analilia Dominguez - Last Filed: 09/26/24 10:33> - General Chief complaint: Psychiatric Symptoms Stated complaint: mental issues Time Seen by Provider: 09/23/24 02:34 - History of Present Illness Initial comments: 39-year-old male presents to the emergency department for evaluation of tactile hallucinations. Patient states that he has a longstanding history of mental health issues and reports that he feels that he is being penetrated in the anus. He reports he believes that this is a ghost or hallucination. He denies any SI or HI. He does report prior hospitalizations for his mental health. (Meri Gonzalez) - Related Data Home Medications Medication Instructions Recorded Confirmed No Known Home Medications 09/23/24 09/23/24 Allergies Allergy/AdvReac Type Severity Reaction Status Date / Time propoxyphene Allergy Intermediate Rash/Hives Verified 09/23/24 11:19 [From Darcet-N 100] Review of Systems ROS Other: All systems not noted in ROS Statement are negative. <Meri Gonzalez - Last Filed: 09/25/24 22:29> ROS Other: All systems not noted in ROS Statement are negative. <Analilia Dominguez - Last Filed: 09/26/24 10:33> ROS Statement: Those systems with pertinent positive or pertinent negative responses have been documented in the HPI. Past Medical History Past Medical History: No Reported History Additional Past Medical History / Comment(s): Obese History of Any Multi-Drug Resistant Organisms: None Reported Past Surgical History: Orthopedic Surgery Additional Past Surgical History / Comment(s): left knee Past Psychological History: Bipolar, Depression Smoking Status: Current every day smoker Past Alcohol Use History: Occasional Past Drug Use History: Marijuana, Prescription Drug Abuse <Meri Gonzalez - Last Filed: 09/25/24 22:29> General Exam Limitations: no limitations General appearance: alert, in no apparent distress Head exam: Present: atraumatic, normocephalic, normal inspection Eye exam: Present: normal appearance, PERRL, EOMI. Absent: scleral icterus, conjunctival injection, periorbital swelling ENT exam: Present: normal exam, mucous membranes moist Neck exam: Present: normal inspection. Absent: tenderness, meningismus, lymphadenopathy Respiratory exam: Present: normal lung sounds bilaterally. Absent: respiratory distress, wheezes, rales, rhonchi, stridor Cardiovascular Exam: Present: regular rate, normal rhythm, normal heart sounds. Absent: systolic murmur, diastolic murmur, rubs, gallop, clicks Extremities exam: Present: normal inspection, full ROM, normal capillary refill. Absent: tenderness, pedal edema, joint swelling, calf tenderness Neurological exam: Present: alert Psychiatric exam: Present: normal mood. Absent: normal affect Skin exam: Present: warm, dry, intact, normal color. Absent: rash <Meri Gonzalez - Last Filed: 09/25/24 22:29> Course Vital Signs 09/23/24 09/23/24 09/23/24 02:17 06:41 18:03 Temperature 98.3 F 98.3 F Pulse Rate 71 72 75 Respiratory 21 18 18 Rate Blood Pressure 139/87 135/89 130/77 O2 Sat by Pulse 96 97 96 Oximetry 09/24/24 09/24/24 09/24/24 04:45 07:31 08:33 Temperature 97.6 F Pulse Rate 68 Respiratory 17 16 17 Rate Blood Pressure 130/85 O2 Sat by Pulse 94 L Oximetry 09/24/24 09:15 Temperature Pulse Rate 88 Respiratory 18 Rate Blood Pressure 121/80 O2 Sat by Pulse 96 Oximetry Medical Decision Making - Lab Data Result diagrams: 09/23/24 04:45 09/23/24 04:45 <Meri Gonzalez - Last Filed: 09/25/24 22:29> - Lab Data Result diagrams: 09/23/24 04:45 09/23/24 04:45 <Analilia Dominguez - Last Filed: 09/26/24 10:33> - Medical Decision Making Was pt. sent in by a medical professional or institution (, PA, ROBOTIC MAINTENANCE TECHNICIAN, urgent care, hospital, or snf...) When possible be specific @ -No Did you speak to anyone other than the patient for history (EMS, parent, family, police, friend...)? What history was obtained from this source @ -No Did you review nursing and triage notes (agree or disagree)? Why? @ -I reviewed and agree with nursing and triage notes Were old charts reviewed (outside hosp., previous admission, EMS record, old EKG, old radiological studies, urgent care reports/EKG's, snf records)? Report findings @ -No old charts were reviewed Differential Diagnosis (chest pain, altered mental status, abdominal pain women, abdominal pain men, vaginal bleeding, weakness, fever, dyspnea, syncope, headache, dizziness, GI bleed, back pain, seizure, CVA, palpatations, mental hea lth, musculoskeletal)? @ -Differential Mental Health Depression, anxiety, bipolar, psychosis, schizophrenia, borderline personality, situational depression, adjustment disorder, behavioral disorder, brain tumor, malingering, substance abuse, encephalopathy, medication reaction, dementia, hypothyroidism, degenerative neurologic disorder, lupus.... This is not meant to be all-inclusive list EKG interpreted by me (3pts min.). @ -None X-rays interpreted by me (1pt min.). @ -None done CT interpreted by me (1pt min.). @ -None done U/S interpreted by me (1pt. min.). @ -None done What testing was considered but not performed or refused? (CT, X-rays, U/S, labs)? Why? @ -None What meds were considered but not given or refused? Why? @ -None Did you discuss the management of the patient with other professionals (professionals i.e. , PA, ROBOTIC MAINTENANCE TECHNICIAN, lab, RT, psych nurse, social sciences department chair, tailings dam laborer, teacher, environmental officer, insurance case manager)? Give summary @ -I discussed case with EPS who recommends psychiatric treatment for this patient although he is not able to be admitted to our facility due to his elevated BMI Was smoking cessation discussed for >3mins.? @ -No Was critical care preformed (if so, how long)? @ -No Were there social determinants of health that impacted care today? How? (Homelessness, low income, unemployed, alcoholism, drug addiction, transportation, low edu. Level, literacy, decrease access to med. care, intermediate, rehab)? @ -No Was there de-escalation of care discussed even if they declined (Discuss DNR or withdrawal of care, Hospice)? DNR status @ -No What co-morbidities impacted this encounter? (DM, HTN, Smoking, COPD, CAD, Cancer, CVA, ARF, Chemo, Hep., AIDS, mental health diagnosis, sleep apnea, morbid obesity)? @ -None Was patient admitted / discharged? Hospital course, mention meds given and route, prescriptions, significant lab abnormalities, going to OR and other pertinent info. @ -Transferred. Patient presented emergency department for mental health eval uation. Patient concerned about increased hallucinations. Denies any SI or HI. Patient was medically cleared and evaluated by EPS. Because of the patient's BMI he has to be transferred to an outside facility for psychiatric services. Patient will be transferred for psychiatric treatment. Case discussed with Dr. Dominguez. Undiagnosed new problem with uncertain prognosis? @ -No Drug Therapy requiring intensive monitoring for toxicity (Heparin, Nitro, Insulin, Cardizem)? @ -No Were any procedures done? @ -No Diagnosis/symptom? @ -Acute psychosis Acute, or Chronic, or Acute on Chronic? @ -Acute Uncomplicated (without systemic symptoms) or Complicated (systemic symptoms)? @ -Uncomplicated Side effects of treatment? @ -No Exacerbation, Progression, or Severe Exacerbation? @ -No Poses a threat to life or bodily function? How? (Chest pain, USA, MD, pneumonia, PE, COPD, DKA, ARF, appy, cholecystitis, CVA, Diverticulitis, Homicidal, Suicidal, threat to staff... and all critical care pts) @Danger to self (Meri Gonzalez) Patient discussed with and evaluated by myself, due to clinical certification being required by EPS for patient transfer. 39 y/o male with increased hallucinations and paranoia. Medication noncompliance. Recommended for inpatient psychiatric hospitalization after EPS eval. Clinical certification filed. Patient to be transferred to inpatient psychiatric facility. (Analilia Dominguez) - Lab Data Lab Results 09/23/24 09/23/24 09/23/24 Range/Units 02:56 04:45 04:45 WBC 8.90 (4.50-10.00) 10*3/uL RBC 4.69 (4.40-5.60) 10*6/uL Hgb 14.8 (13.0-17.0) g/dL Hct 45.8 (39.6-50.0) % MCV 97.7 H (80.0-97.0) fL MCH 31.6 (27.0-32.0) pg MCHC 32.3 (32.0-37.0) g/dL Plt Count 201 (140-440) 10*3/uL MPV 9.2 L (9.5-12.2) fL Immature Gran % (Auto) 0.4 % Neutrophils % 65.3 % Lymphocytes % 24.7 % Monocytes % 7.6 % Eosinophils % 1.3 % Basophils % 0.7 % Immature Gran # 0.04 (0.00-0.04) 10*3/uL Neutrophils # 5.80 (1.80-7.70) 10*3/uL Lymphocytes # 2.20 (0.90-5.00) 10*3/uL Monocytes # 0.68 (0.20-1.00) 10*3/uL Eosinophils # 0.12 (0.04-0.35) 10*3/uL Basophils # 0.06 (0.00-0.10) 10*3/uL Sodium (137-145) mmol/L Potassium (3.5-5.1) mmol/L Chloride (98-107) mmol/L Carbon Dioxide (22-30) mmol/L Anion Gap mmol/L BUN (9-20) mg/dL Creatinine (0.66-1.25) mg/dL Est GFR (CKD-EPI)AfAm (>60 ml/min/1.73 sqM) Est GFR (CKD-EPI)NonAf (>60 ml/min/1.73 sqM) Glucose (74-99) mg/dL Calcium (8.4-10.2) mg/dL Total Bilirubin (0.2-1.3) mg/dL AST (17-59) U/L ALT (4-49) U/L Alkaline Phosphatase (38-126) U/L Total Protein (6.3-8.2) g/dL Albumin (3.5-5.0) g/dL TSH (0.465-4.680) mIU/L Urine Color Yellow Urine Appearance Clear (Clear) Urine pH 5.5 (5.0-8.0) Ur Specific [place] 1.037 H (1.001-1.035) Urine Protein Trace H (Negative) Urine Glucose (UA) Negative (Negative) Urine Ketones Negative (Negative) Urine Blood Negative (Negative) Urine Nitrite Negative (Negative) Urine Bilirubin Negative (Negative) Urine Urobilinogen 3.0 (<2.0) mg/dL Ur Leukocyte Esterase Negative (Negative) Urine Opiates Screen Not Detected (NotDetected) Ur Oxycodone Screen Not Detected (NotDetected) Urine Methadone Screen Not Detected (NotDetected) Ur Barbiturates Screen Not Detected (NotDetected) U Tricyclic Antidepress Not Detected (NotDetected) Ur Phencyclidine Scrn Not Detected (NotDetected) Ur Amphetamines Screen Not Detected (NotDetected) U Methamphetamines Scrn Not Detected (NotDetected) U Benzodiazepines Scrn Not Detected (NotDetected) Urine Cocaine Screen Not Detected (NotDetected) U Marijuana (THC) Screen Not Detected (NotDetected) SARS-CoV-2 (PCR) (Not Detectd) 09/23/24 09/23/24 Range/Units 04:45 04:45 WBC (4.50-10.00) 10*3/uL RBC (4.40-5.60) 10*6/uL Hgb (13.0-17.0) g/dL Hct (39.6-50.0) % MCV (80.0-97.0) fL MCH (27.0-32.0) pg MCHC (32.0-37.0) g/dL Plt Count (140-440) 10*3/uL MPV (9.5-12.2) fL Immature Gran % (Auto) % Neutrophils % % Lymphocytes % % Monocytes % % Eosinophils % % Basophils % % Immature Gran # (0.00-0.04) 10*3/uL Neutrophils # (1.80-7.70) 10*3/uL Lymphocytes # (0.90-5.00) 10*3/uL Monocytes # (0.20-1.00) 10*3/uL Eosinophils # (0.04-0.35) 10*3/uL Basophils # (0.00-0.10) 10*3/uL Sodium 141 (137-145) mmol/L Potassium 4.6 (3.5-5.1) mmol/L Chloride 108 H (98-107) mmol/L Carbon Dioxide 25 (22-30) mmol/L Anion Gap 8 mmol/L BUN 17 (9-20) mg/dL Creatinine 0.53 L (0.66-1.25) mg/dL Est GFR (CKD-EPI)AfAm >90 (>60 ml/min/1.73 sqM) Est GFR (CKD-EPI)NonAf >90 (>60 ml/min/1.73 sqM) Glucose 80 (74-99) mg/dL Calcium 8.5 (8.4-10.2) mg/dL Total Bilirubin 1.5 H (0.2-1.3) mg/dL AST 44 (17-59) U/L ALT 23 (4-49) U/L Alkaline Phosphatase 70 (38-126) U/L Total Protein 6.7 (6.3-8.2) g/dL Albumin 3.8 (3.5-5.0) g/dL TSH 2.230 (0.465-4.680) mIU/L Urine Color Urine Appearance (Clear) Urine pH (5.0-8.0) Ur Specific [place] (1.001-1.035) Urine Protein (Negative) Urine Glucose (UA) (Negative) Urine Ketones (Negative) Urine Blood (Negative) Urine Nitrite (Negative) Urine Bilirubin (Negative) Urine Urobilinogen (<2.0) mg/dL Ur Leukocyte Esterase (Negative) Urine Opiates Screen (NotDetected) Ur Oxycodone Screen (NotDetected) Urine Methadone Screen (NotDetected) Ur Barbiturates Screen (NotDetected) U Tricyclic Antidepress (NotDetected) Ur Phencyclidine Scrn (NotDetected) Ur Amphetamines Screen (NotDetected) U Methamphetamines Scrn (NotDetected) U Benzodiazepines Scrn (NotDetected) Urine Cocaine Screen (NotDetected) U Marijuana (THC) Screen (NotDetected) SARS-CoV-2 (PCR) Not Detected (Not Detectd) Disposition Is patient prescribed a controlled substance at d/c from ED?: No <Meri Gonzalez - Last Filed: 09/25/24 22:29> <Analilia Dominguez - Last Filed: 09/26/24 10:33> Clinical Impression: Acute psychosis Disposition: TRANSFER TO PSYCH HOSP/UNIT Condition: Stable Referrals: Gurjit Meraz DO [Primary Care Provider] - 1-2 days
[2024-09-23 03:31] LABS: Barbiturate Screen,Urine Not Detected (NotDetected); Benzodiazepines Screen,Urine Not Detected (NotDetected); Opiate Screen,Urine Not Detected (NotDetected); Oxycodone Screen, Urine Not Detected (NotDetected); Phencyclidine Screen,Urine Not Detected (NotDetected); Tricyclic Antidepressant,Urine Not Detected (NotDetected); Urn Cannabinoid Scrn Not Detected (NotDetected)
[2024-09-23 04:57] LABS: Bilirubin,Urine Negative (Negative); Blood,Urine Negative (Negative); Color,Urine Yellow; Glucose,Urine (UA) Negative (Negative); Ketones,Urine Negative (Negative); Leukocyte Esterase,Urine Negative (Negative); Nitrite,Urine Negative (Negative); PH, Urine 5.5 (5.0-8.0); Protein,Urine Trace (Negative); Specific Gravity,Urine 1.037 (1.001-1.035); Urobilinogen,Urine 3.0 mg/dL (<2.0)
[2024-09-23 04:59] LABS: Basophils # (A) 0.06 10*3/uL (0.00-0.10); Basophils % (A) 0.7 %; Eosinophils # (A) 0.12 10*3/uL (0.04-0.35); Eosinophils % (A) 1.3 %; HCT 45.8 % (39.6-50.0); HGB 14.8 g/dL (13.0-17.0); Lymphocytes # (A) 2.20 10*3/uL (0.90-5.00); Lymphocytes % (A) 24.7 %; MCH 31.6 pg (27.0-32.0); MCHC 32.3 g/dL (32.0-37.0); MCV 97.7 fL (80.0-97.0); Monocytes # (A) 0.68 10*3/uL (0.20-1.00); Monocytes % (A) 7.6 %; Neutrophils # (A) 5.80 10*3/uL (1.80-7.70); Neutrophils % (A) 65.3 %; Platelet Count 201 10*3/uL (140-440); RBC 4.69 10*6/uL (4.40-5.60); RDW 13.6 % (11.5-14.5); WBC 8.90 10*3/uL (4.50-10.00)
[2024-09-23 05:10] LABS: ALT 23 U/L (4-49); African American GFR (CKD) >90 (>60 ml/min/1.73 sqM); Anion Gap 8 mmol/L; Blood Urea Nitrogen 17 mg/dL (9-20); Calcium 8.5 mg/dL (8.4-10.2); Carbon Dioxide 25 mmol/L (22-30); Chloride 108 mmol/L (98-107); Glucose 80 mg/dL (74-99); Non-African American GFR(CKD) >90 (>60 ml/min/1.73 sqM); Sodium 141 mmol/L (137-145)
[2024-09-23 05:11] LABS: AST 44 U/L (17-59); Albumin 3.8 g/dL (3.5-5.0); Alkaline Phosphatase 70 U/L (38-126); Potassium 4.6 mmol/L (3.5-5.1); Total Protein 6.7 g/dL (6.3-8.2)
[2024-09-24 04:46] VITALS: TEMP 97.6
[2024-09-24 09:19] VITALS: BP 121/80; PULSE 88; RESP 18
== END 2024-09-24 09:20 ==
LOC: EC 02:14
DX: F23 Brief psychotic disorder (principal); F17.200 Nicotine dependence, unspecified, uncomplicated; Z11.52 Encounter for screening for COVID-19; Z88.8 Allergy status to other drugs, medicaments and biological substances
CPT/HCPCS: 36415; 80053; 80306; 81003; 82075; 84443; 85025; 87635; 99285